=== PATIENT | female | born 1965 | race Caucasian/White ===

== ENCOUNTER 2018-01-27 08:19 | Day surgery (SDC) | payer OTHER ==
[~2018-01-27] VITALS: Ht 160 cm; Wt 138.6 kg
[~2018-01-27 08:19] MED LIST: ALBU3IS INH; ALBU90OI61 INH; ARIP10 PO; AZIT250 PO; BECL40OI INH; CLIN150 PO; CYCL10 PO; DILT30 PO; DIPATR; DOCU100 PO; ESCI10 PO; ESTR.625; ESTR2; EXTRA STRENGTH500 MG PO; Estradiol0.5 MG PO; FURO40 PO; LORA.5; LORA.5 PO; Mirapex0.25 MG PO; NAPR500 PO; NYSTRITC TOP; PARO20 PO; POTA10T PO; PRAM.125; PRAV20 PO; QUET100; RISP1 PO; RXCLIN PO; RXCYCL10 PO; TOPI25; TOPI25 PO; VENL75ER; Ventolin Soln3 ML INH; WARF7.5 PO; [UNRECOGNIZED DRUG - OTHER]; estradiol
[2018-01-27] MEDS ORDERED: LATUDA40 MG PO (09:17)
== END 2018-01-27 10:00 | disposition home or self-care (01) ==
LOC: ORSCSDS 08:19
DX: G56.02 Carpal tunnel syndrome, left upper limb (principal); Z53.9 Procedure and treatment not carried out, unspecified reason; I10 Essential (primary) hypertension; J45.909 Unspecified asthma, uncomplicated; J44.9 Chronic obstructive pulmonary disease, unspecified; F41.8 Other specified anxiety disorders; Z79.899 Other long term (current) drug therapy; E11.51 Type 2 diabetes mellitus with diabetic peripheral angiopathy without gangrene
CPT/HCPCS: 82947; J7120

== ENCOUNTER 2018-02-10 08:15 | Day surgery (SDC) | payer OTHER ==
[~2018-02-10] VITALS: Ht 152.4 cm; Wt 136.8 kg
[~2018-02-10 08:15] MED LIST changes: +LATUDA40 MG PO
== END 2018-02-10 10:59 | disposition home or self-care (01) ==
LOC: ORSCSDS 08:15
PROVIDERS: Orthopaedic Surgery
PROC: 01N50ZZ Release Median Nerve, Open Approach (ICD-10-PCS; principal; 2018-02-10 09:30)
DX: G56.02 Carpal tunnel syndrome, left upper limb (principal); E11.9 Type 2 diabetes mellitus without complications; I10 Essential (primary) hypertension; E03.9 Hypothyroidism, unspecified; E78.5 Hyperlipidemia, unspecified; Z87.891 Personal history of nicotine dependence; F41.8 Other specified anxiety disorders; Z79.899 Other long term (current) drug therapy
CPT/HCPCS: J2250

== ENCOUNTER → 2018-02-17 | Outpatient (CLI) | payer OTHER ==
[2018-02-17 14:57] LABS: Source, Urine Voided
[2018-02-17 15:07] LABS: Red Blood Cells, Urine 0-2 /hpf (0-2); White Blood Cells, Urine Rare /hpf (0-5)
[2018-02-17 15:08] LABS: Bacteria Not Seen /hpf; Squamous Epithelial Cells Rare /hpf (Few)
== END ==
LOC: LAB SHORT 14:56 → LAB EV 14:56
PROVIDERS: Physician Assistant
DX: R30.0 Dysuria (principal)
CPT/HCPCS: 81015; 87077; 87086; 87186

== ENCOUNTER → 2018-03-10 | Outpatient (CLI) | payer OTHER ==
[2018-03-10 13:55] LABS: Blood Urea Nitrogen 11 mg/dL (8-24); Creatinine, Blood 0.75 mg/dL (0.40-1.00); Glomerular Filtration Rate >60 (60-)
== END ==
LOC: LAB 11:19 → LAB SHORT 11:19
PROVIDERS: Hospitalist
DX: N39.0 Urinary tract infection, site not specified (principal); R06.02 Shortness of breath
CPT/HCPCS: 82565; 84520; 87086

== ENCOUNTER → 2018-05-13 | Outpatient (CLI) | payer OTHER ==
[2018-05-13 16:16] LABS: Appearance, Urine Clear (Clear); Bilirubin, Urine Neg (Neg); Blood, Urine Neg (Neg); Color, Urine Yellow (P-Yellow); Glucose Qualitative, Urine Neg (Neg); Ketones, Urine Neg (Neg); Leukocyte Esterase, Urine Neg (Neg); Nitrite, Urine Neg (Neg); Protein, Urine Neg (Neg); Urobilinogen, Urine NORM (Normal)
== END ==
LOC: LAB 12:35 → LAB SHORT 12:35
PROVIDERS: Hospitalist
DX: N39.0 Urinary tract infection, site not specified (principal)
CPT/HCPCS: 81003

== ENCOUNTER → 2018-12-07 | Outpatient (CLI) | payer OTHER ==
[~2018-12-07] MED LIST changes: +LEVO750 PO
== END | disposition home or self-care (01) ==
LOC: LAB SHORT 13:33 → LAB 13:33
DX: R30.0 Dysuria (principal)
CPT/HCPCS: 87086

== ENCOUNTER → 2019-02-28 | Outpatient (CLI) | payer OTHER | END | disposition home or self-care (01) | LOC: LAB 17:19 → LAB SHORT 17:19 | DX: R30.0 Dysuria (principal) | CPT/HCPCS: 87077; 87086; 87186 ==

== ENCOUNTER → 2019-04-10 | Outpatient (CLI) | payer OTHER ==
[2019-04-10 16:14] LABS: Alanine Aminotransfer (ALT/SGP 22 U/L (12-78); Albumin, Blood 3.3 g/dL (3.4-5.0); Albumin/Globulin Ratio 0.9 (0.8-1.8); Alk Phos 133 U/L (50-136); Anion Gap 6 mmol/L (6-16); Aspartate Aminotrans (AST/SGOT 42 U/L (12-37); Blood Urea Nitrogen 12 mg/dL (8-24); Bun/Creatinine Ratio 16.9 (12.0-20.0); CHOL/HDL RATIO 4.7; CO2, Blood 29 mmol/L (21-32); Calcium, Blood 8.9 mg/dL (8.5-10.1); Chloride, Blood 106 mmol/L (98-108); Cholesterol 174 mg/dL (50-200); Creatinine, Blood 0.71 mg/dL (0.40-1.00); Globulin, Blood 3.7 g/dL (2.2-4.0); Glomerular Filtration Rate >60 (60-); Glucose, Blood 117 mg/dL (70-99); HDL Cholesterol 37 mg/dL (>39); LDL/HDL RATIO 2.5; Low Density Lipoprotein Chol 94 mg/dL (0-110); Potassium, Blood 4.5 mmol/L (3.5-5.5); Sodium, Blood 141 mmol/L (136-145); Triglycerides 217 mg/dL (30-160); Very Low Density Lipoprot Chol 43 mg/dL (6-32)
[2019-04-10 16:39] LABS: Bilirubin, Total 0.7 mg/dL (0.1-1.0)
== END | disposition home or self-care (01) ==
LOC: LAB SHORT 15:53 → LAB 15:53
PROVIDERS: Hospitalist
DX: E11.51 Type 2 diabetes mellitus with diabetic peripheral angiopathy without gangrene (principal); E55.9 Vitamin D deficiency, unspecified
CPT/HCPCS: 80053; 80061; 82306; 83036

== ENCOUNTER → 2019-05-02 | Outpatient (CLI) | payer OTHER | END | disposition home or self-care (01) | LOC: LAB EV 11:31 → LAB SHORT 11:31 | DX: N39.0 Urinary tract infection, site not specified (principal) | CPT/HCPCS: 87077; 87086; 87186 ==

== ENCOUNTER → 2019-07-03 | Outpatient (CLI) | payer OTHER | END | disposition home or self-care (01) | LOC: LAB SHORT 19:17 → LAB 19:17 | DX: R35.0 Frequency of micturition (principal) | CPT/HCPCS: 87077; 87086; 87186 ==

== ENCOUNTER → 2019-07-11 | Outpatient (CLI) | payer OTHER | END | disposition home or self-care (01) | LOC: PLD 07:54 → LAB SHORT 07:54 | DX: L30.8 Other specified dermatitis (principal) | CPT/HCPCS: 88305; 88313 ==

== ENCOUNTER → 2019-10-06 | Outpatient (CLI) | payer OTHER | END | disposition home or self-care (01) | LOC: LAB SHORT 13:45 → LAB 13:45 | DX: N39.0 Urinary tract infection, site not specified (principal) | CPT/HCPCS: 87077; 87086; 87186 ==

== ENCOUNTER → 2019-11-30 | Outpatient (CLI) | payer OTHER | END | disposition home or self-care (01) | LOC: LAB SHORT 15:44 → LAB 15:44 | DX: N39.0 Urinary tract infection, site not specified (principal) | CPT/HCPCS: 87077; 87086; 87186 ==

== ENCOUNTER → 2019-12-14 | Outpatient (CLI) | payer OTHER | END | disposition home or self-care (01) | LOC: LAB SHORT 13:32 → LAB 13:32 | DX: N39.0 Urinary tract infection, site not specified (principal) | CPT/HCPCS: 87086 ==

== ENCOUNTER → 2020-06-20 | Outpatient (CLI) | payer OTHER | END | disposition home or self-care (01) | LOC: LAB SHORT 14:26 → PLD 14:26 | DX: L57.0 Actinic keratosis (principal) | CPT/HCPCS: 88305 ==

== ENCOUNTER → 2020-07-17 | Outpatient (CLI) | payer OTHER | END | disposition home or self-care (01) | LOC: LAB SHORT 19:22 → OLS 19:22 | DX: E11.51 Type 2 diabetes mellitus with diabetic peripheral angiopathy without gangrene (principal) | CPT/HCPCS: 82043 ==

== ENCOUNTER → 2020-08-27 | Outpatient (CLI) | payer OTHER ==
[~2020-08-27] MED LIST changes: +DOCUZEN 8.6-501 EACH PO; +IBUP800 PO; +IPRAT-ALBUT 0.5-3 ML NEB; +LATUDA60 M2 PO; +LORAZEPAM0.5 MG PO; +LOSARTAN POTASS25 M2 PO; +METFORMIN HCL500 M3 PO; +METOPROLOL SUCC25 MG PO; +Norco 5-325 Ta1 EACH PO; +PAXIL40 M1 PO; +PRAMIPEXOLE DIHY1 M1 PO; +PREGABALIN150 M1 PO; +PULMICORT0.5 MG/21 NEB
== END | disposition home or self-care (01) ==
LOC: LAB 14:52
DX: N30.00 Acute cystitis without hematuria (principal)
CPT/HCPCS: 87077; 87086; 87186

== ENCOUNTER → 2020-10-10 | Outpatient (CLI) | payer OTHER ==
[2020-10-10 19:54] LABS: Creatinine, Blood 0.79 mg/dL (0.40-1.00)
== END | disposition home or self-care (01) ==
LOC: LAB SHORT 14:30 → LAB 14:30
PROVIDERS: Hospitalist
DX: R10.10 Upper abdominal pain, unspecified (principal)
CPT/HCPCS: 82565; 84520

== ENCOUNTER 2020-11-18 09:40 | Emergency (ER) | payer OTHER ==
[~2020-11-18] VITALS: Ht 160 cm; Wt 130.6 kg
[~2020-11-18 09:40] MED LIST changes: -DOCUZEN 8.6-501 EACH PO; -IBUP800 PO; -IPRAT-ALBUT 0.5-3 ML NEB; -LATUDA60 M2 PO; -LORAZEPAM0.5 MG PO; -LOSARTAN POTASS25 M2 PO; -METFORMIN HCL500 M3 PO; -METOPROLOL SUCC25 MG PO; -Norco 5-325 Ta1 EACH PO; -PAXIL40 M1 PO; -PRAMIPEXOLE DIHY1 M1 PO; -PREGABALIN150 M1 PO; -PULMICORT0.5 MG/21 NEB
[2020-11-18 11:02] LABS: Source, Urine Voided
[2020-11-18 11:24] LABS: Bilirubin, Urine Neg (Neg); Blood, Urine Neg (Neg); Glucose Qualitative, Urine Neg (Neg); Ketones, Urine Neg (Neg); Leukocyte Esterase, Urine Neg (Neg); Nitrite, Urine Neg (Neg); Protein, Urine Neg (Neg); Specific Gravity, Urine 1.025 (1.003-1.022); Urobilinogen, Urine NORM (Normal)
[2020-11-18 11:33] LABS: BASOPHILS ABSOLUTE AUTO 0.08 K/mm3 (0.00-0.23); BASOPHILS PERCENT AUTO 1 % (0-2); EOSINOPHILS ABSOLUTE AUTO 0.18 K/mm3 (0.00-0.68); EOSINOPHILS PERCENT AUTO 2 % (0-6); Hematocrit 46.4 % (33.0-51.0); Hemoglobin 15.5 g/dL (11.5-16.0); IMMATURE GRAN ABSOLUTE AUTO 0.06 K/mm3 (0.00-0.10); IMMATURE GRAN PERCENT AUTO 1 % (0-1); LYMPHOCYTES ABSOLUTE AUTO 2.88 K/mm3 (0.84-5.20); LYMPHOCYTES PERCENT AUTO 27 % (21-46); MONOCYTES ABSOLUTE AUTO 0.94 K/mm3 (0.16-1.47); MONOCYTES PERCENT AUTO 9 % (4-13); Mean Corpuscular HGB Conc 33.4 g/dL (31.5-36.5); Mean Corpuscular Volume 96 fL (80-100); Mean Platelet Volume 10.2 fL (9.1-12.4); NEUTROPHILS PERCENT AUTO 61 % (41-73); Platelet Count 242 K/mm3 (150-400); RDW Coefficient Variation 13.2 % (11.7-14.2); RDW Standard Deviation 47.1 fL (35.1-46.3); Red Blood Cell Count 4.84 M/mm3 (3.80-5.20); White Blood Cell Count 10.64 K/mm3 (4.00-11.30)
[2020-11-18 11:40] LABS: Appearance, Urine Clear (Clear); Color, Urine Yellow (P-Yellow)
[2020-11-18 11:59] LABS: Alanine Aminotransfer (ALT/SGP 22 U/L (12-78); Albumin, Blood 2.9 g/dL (3.4-5.0); Albumin/Globulin Ratio 0.7 (0.8-1.8); Alk Phos 123 U/L (50-136); Anion Gap 8 mmol/L (6-16); Aspartate Aminotrans (AST/SGOT 29 U/L (12-37); Bilirubin, Total 0.3 mg/dL (0.1-1.0); Blood Urea Nitrogen 12 mg/dL (8-24); CO2, Blood 26 mmol/L (21-32); Calcium, Blood 9.3 mg/dL (8.5-10.1); Chloride, Blood 107 mmol/L (98-108); Creatinine, Blood 0.67 mg/dL (0.40-1.00); Globulin, Blood 4.1 g/dL (2.2-4.0); Glomerular Filtration Rate >60 (60-); Glucose, Blood 126 mg/dL (70-99); Potassium, Blood 4.4 mmol/L (3.5-5.5); Sodium, Blood 141 mmol/L (136-145)
[2020-11-18] MEDS ORDERED: Norco 5-325 Ta1 EACH PO (13:33)
[2020-11-18] MEDS ORDERED: IBUP800 PO (13:33)
== END 2020-11-18 14:58 | disposition home or self-care (01) ==
LOC: ER 09:40
PROVIDERS: Emergency Medicine
DX: M54.9 Dorsalgia, unspecified (principal); R10.9 Unspecified abdominal pain; Z79.899 Other long term (current) drug therapy; Z79.01 Long term (current) use of anticoagulants; Z88.2 Allergy status to sulfonamides; Z88.0 Allergy status to penicillin; Z91.09 Other allergy status, other than to drugs and biological substances; Z88.1 Allergy status to other antibiotic agents
CPT/HCPCS: 36415; 80053; 81003; 83690; 85025; 96374; 96375; 99283-25; J1885; J2270; J2405

== ENCOUNTER 2020-11-25 10:56 | Observation (INO) | payer OTHER ==
[~2020-11-25] VITALS: Ht 160 cm; Wt 132.9 kg
[~2020-11-25 10:56] MED LIST changes: +IBUP800 PO; +Norco 5-325 Ta1 EACH PO
[2020-11-25] MEDS ORDERED: PAXIL40 M1 PO (12:02)
[2020-11-25] MEDS ORDERED: LATUDA60 M2 PO (12:04)
[2020-11-25] MEDS ORDERED: PREGABALIN150 M1 PO (12:04)
[2020-11-25] MEDS ORDERED: METFORMIN HCL500 M3 PO (12:06)
[2020-11-25] MEDS ORDERED: LORAZEPAM0.5 MG PO (12:06)
[2020-11-25] MEDS ORDERED: PRAMIPEXOLE DIHY1 M1 PO (12:07)
[2020-11-25] MEDS ORDERED: PULMICORT0.5 MG/21 NEB (12:07)
[2020-11-25] MEDS ORDERED: IPRAT-ALBUT 0.5-3 ML NEB (12:09)
[2020-11-25] MEDS ORDERED: METOPROLOL SUCC25 MG PO (12:14)
[2020-11-25] MEDS ORDERED: LOSARTAN POTASS25 M2 PO (12:14)
[2020-11-25 12:16] LABS: BASOPHILS ABSOLUTE AUTO 0.08 K/mm3 (0.00-0.23); BASOPHILS PERCENT AUTO 1 % (0-2); EOSINOPHILS ABSOLUTE AUTO 0.22 K/mm3 (0.00-0.68); EOSINOPHILS PERCENT AUTO 3 % (0-6); Hematocrit 48.8 % (33.0-51.0); Hemoglobin 16.3 g/dL (11.5-16.0); IMMATURE GRAN ABSOLUTE AUTO 0.08 K/mm3 (0.00-0.10); IMMATURE GRAN PERCENT AUTO 1 % (0-1); LYMPHOCYTES ABSOLUTE AUTO 2.61 K/mm3 (0.84-5.20); LYMPHOCYTES PERCENT AUTO 30 % (21-46); MONOCYTES ABSOLUTE AUTO 0.72 K/mm3 (0.16-1.47); MONOCYTES PERCENT AUTO 8 % (4-13); Mean Corpuscular HGB Conc 33.4 g/dL (31.5-36.5); Mean Corpuscular Volume 96 fL (80-100); Mean Platelet Volume 10.4 fL (9.1-12.4); NEUTROPHILS ABSOLUTE AUTO 5.02 K/mm3 (1.96-9.15); NEUTROPHILS PERCENT AUTO 58 % (41-73); Platelet Count 301 K/mm3 (150-400); RDW Coefficient Variation 13.2 % (11.7-14.2); RDW Standard Deviation 47.1 fL (35.1-46.3); Red Blood Cell Count 5.09 M/mm3 (3.80-5.20); White Blood Cell Count 8.73 K/mm3 (4.00-11.30)
[2020-11-25 12:27] LABS: International Normalized Ratio 1.01; Prothrombin Time Results 10.8 Sec (9.7-11.5)
[2020-11-25 12:52] LABS: Alanine Aminotransfer (ALT/SGP 23 U/L (12-78); Albumin, Blood 3.5 g/dL (3.4-5.0); Albumin/Globulin Ratio 0.8 (0.8-1.8); Alk Phos 128 U/L (50-136); Anion Gap 4 mmol/L (6-16); Aspartate Aminotrans (AST/SGOT 30 U/L (12-37); Bilirubin, Total 0.5 mg/dL (0.1-1.0); Blood Urea Nitrogen 13 mg/dL (8-24); Bun/Creatinine Ratio 17.9 (12.0-20.0); CO2, Blood 29 mmol/L (21-32); Calcium, Blood 9.6 mg/dL (8.5-10.1); Chloride, Blood 106 mmol/L (98-108); Creatinine, Blood 0.73 mg/dL (0.40-1.00); Globulin, Blood 4.4 g/dL (2.2-4.0); Glomerular Filtration Rate >60 (60-); Glucose, Blood 140 mg/dL (70-99); Potassium, Blood 4.4 mmol/L (3.5-5.5); Sodium, Blood 139 mmol/L (136-145); Total Protein, Blood 7.9 g/dL (6.4-8.2)
[2020-11-25 13:07] LABS: Source, Urine Clean Catch
[2020-11-25 13:12] LABS: Appearance, Urine Hazy (Clear); Bilirubin, Urine Neg (Neg); Blood, Urine Neg (Neg); Color, Urine Yellow (P-Yellow); Glucose Qualitative, Urine Neg (Neg); Ketones, Urine Neg (Neg); Leukocyte Esterase, Urine Neg (Neg); Nitrite, Urine Neg (Neg); Protein, Urine Neg (Neg); Specific Gravity, Urine 1.015 (1.003-1.022); Urobilinogen, Urine NORM (Normal)
[2020-11-25 13:27] LABS: Red Blood Cells, Urine 0-2 /hpf (0-2); Squamous Epithelial Cells Mod /hpf (Few); White Blood Cells, Urine 0-2 /hpf (0-5)
[2020-11-25 13:27] LABS: Influenza A, PCR NEGATIVE (NEGATIVE); Influenza B, PCR NEGATIVE (NEGATIVE); Resp Syncytial Virus, PCR NEGATIVE (NEGATIVE); SARS-Cov-2 (COVID-19) PCR, MMC NEGATIVE (NEGATIVE)
[2020-11-25 13:28] LABS: Bacteria Rare /hpf; Yeast/Fungi Urine Mod /hpf
--- NOTE | 2020-11-26 03:52 | NUR ---
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 C/O PAIN IN RUQ, MEDICATED PER EMAR. COMPLIANT WITH CPAP. VSS, NO ACUTE CHANGES AT THIS TIME. NPO SINCE MIDNIGHT, PLAN FOR MARSHAL TODAY. BED IN LOWEST POSITION WITH CALL LIGHT IN REACH. WILL CONTINUE TO MONITOR AND REPORT TO ONCOMING RN.
[2020-11-26 04:10] LABS: Hematocrit 43.6 % (33.0-51.0); Hemoglobin 14.2 g/dL (11.5-16.0); Mean Corpuscular HGB 31.5 pg (26.0-34.0); Mean Corpuscular HGB Conc 32.6 g/dL (31.5-36.5); Mean Corpuscular Volume 97 fL (80-100); Mean Platelet Volume 10.1 fL (9.1-12.4); Platelet Count 279 K/mm3 (150-400); RDW Coefficient Variation 13.2 % (11.7-14.2); RDW Standard Deviation 46.7 fL (35.1-46.3); Red Blood Cell Count 4.51 M/mm3 (3.80-5.20); White Blood Cell Count 8.32 K/mm3 (4.00-11.30)
[2020-11-26 04:49] LABS: Alanine Aminotransfer (ALT/SGP 17 U/L (12-78); Albumin/Globulin Ratio 0.9 (0.8-1.8); Alk Phos 114 U/L (50-136); Anion Gap 3 mmol/L (6-16); Aspartate Aminotrans (AST/SGOT 23 U/L (12-37); Bilirubin, Total 0.5 mg/dL (0.1-1.0); Blood Urea Nitrogen 10 mg/dL (8-24); Bun/Creatinine Ratio 11.2 (12.0-20.0); CO2, Blood 33 mmol/L (21-32); Calcium, Blood 9.1 mg/dL (8.5-10.1); Chloride, Blood 105 mmol/L (98-108); Creatinine, Blood 0.89 mg/dL (0.40-1.00); Globulin, Blood 3.5 g/dL (2.2-4.0); Glomerular Filtration Rate >60 (60-); Glucose, Blood 113 mg/dL (70-99); Potassium, Blood 4.3 mmol/L (3.5-5.5); Sodium, Blood 141 mmol/L (136-145); Total Protein, Blood 6.5 g/dL (6.4-8.2)
--- NOTE | 2020-11-26 10:35 | NUR ---
PATIENT TO THE OR FOR LAP MARSHAL AT 1030. SELF TRANSFERED TO [facility]. L VIA MT. ALERT AND ORIENTED. STABLE AT TIME OF TRANSFER. WILL AWAIT PATIENTS RETURN.
--- NOTE | 2020-11-26 13:01 | NUR ---
PATIENT RETURNED FROM THE PACU AT 1215. SHE SELF TRANSFERED TO HER BED, THEN BATHROOM AND BACK WITH A WALKER. 1 PERSON STAND BY ASSIST. BIOX IS ABOUT 90% ON 3L. MEDICATED WITH 25MCG FENTAYL AND PLACED ON CPAP WITH 3L BLEED TO REST. BED LOW AND LOCKED, CALL LIGHT WITHIN REACH. WILL CONT TO [facility].
--- NOTE | 2020-11-26 15:14 | NUR ---
PATIENT STATES SHE NO LONGER WISHES TO BE A DNR. SHE REQUESTS HER PURPLE WRIST BAND TO BE REMOVED AND MADE A FULL CODE. REVIEWED WITH . ORDERS UPDATED TO REFLECT PATIENTS WISHES. WILL CONT TO MONITOR.
--- NOTE | 2020-11-26 17:49 | NUR ---
SHIFT SUMMARY NO ACUTE CHANGES THIS SHIFT. PATIENT ALERT, ORIENTED, ABLE TO MAKE HER NEEDS KNOWN. SHE IS INDEPENDENT IN HER ROOM. SHE HAS MAINTAINED HER SPO2 LEVELS ON 3L, 2L BASELINE AT HOME. CPAP WHEN SHE RESTS/SLEEPS. PRN SIMETHECON FOR GAS GIVEN X1, 25MCG FENANYL IV X1 FOR PAIN POST OP. PATIENT TOLERATING ADA DIET. BED LOW AND LOCKED, CALL LIGHT WITHIN REACH. WILL CONT TO MONITOR AND PROVIDE REPORT TO NOC SHIFT RN.
--- NOTE | 2020-11-27 05:54 | NUR ---
SHIFT SUMMARY POD1 LAP JENIFFER, A/O X4, VSS, TOLERATING PO, VOIDING WELL, INDEPENDENT IN ROOM AND BATHROOM, NO BM REPORTED THIS SHIFT, PAIN WELL CONTROLLED W/ ORAL MEDS (PER EMAR), NO ACUTE EVENTS THIS SHIFT. CALL LIGHT IN REACH, WILL CONTINUE TO MONITOR AND REPORT TO ONCOMING DAY RN.
[2020-11-27] MEDS ORDERED: Norco 5-325 Ta1 EACH PO (13:31)
[2020-11-27] MEDS ORDERED: DOCUZEN 8.6-501 EACH PO (13:33)
--- NOTE | 2020-11-27 16:38 | NUR ---
DISCHARGE HOME PATIENT DISCHAGE HOME. A FRIEND PICKED HER UP. MEDICATIONS FAXED TO [facility] IN [place] PER PATIENTS REQUEST. DISCHARGE TEACHING COMPLETE. PATIENT VERBALIZE DUNDERSTANDING AND STATES SHE FEELS READY FOR DISCHARGE. PATIENT ESCORTED OUT BY SURG FLOOR STAFF. PATIENT STABLE AT TIME OF DISCHARGE
== END 2020-11-27 14:13 | disposition home or self-care (01) ==
LOC: ER 10:56 → ERHOLD 10:57 → SURS 10:57
PROVIDERS: Physician Assistant; Surgery; ADMIT Internal Medicine
PROC: 0FT44ZZ Resection of Gallbladder, Percutaneous Endoscopic Approach (ICD-10-PCS; principal; 2020-11-26 13:30)
DX: K80.12 Calculus of gallbladder with acute and chronic cholecystitis without obstruction (principal); J44.9 Chronic obstructive pulmonary disease, unspecified; E78.5 Hyperlipidemia, unspecified; I10 Essential (primary) hypertension; G47.33 Obstructive sleep apnea (adult) (pediatric); E11.51 Type 2 diabetes mellitus with diabetic peripheral angiopathy without gangrene; E66.01 Morbid (severe) obesity due to excess calories; E03.9 Hypothyroidism, unspecified; F43.10 Post-traumatic stress disorder, unspecified; F31.9 Bipolar disorder, unspecified; Z87.891 Personal history of nicotine dependence; Z86.711 Personal history of pulmonary embolism; Z88.1 Allergy status to other antibiotic agents; Z88.0 Allergy status to penicillin; Z88.2 Allergy status to sulfonamides; Z79.84 Long term (current) use of oral hypoglycemic drugs; Z66 Do not resuscitate; Z20.822 Contact with and (suspected) exposure to COVID-19; Z68.43 Body mass index [BMI] 50.0-59.9, adult
CPT/HCPCS: 0241U; 36415; 74300; 76705; 80053; 81001; 82947; 83690; 85025; 85027; 85610; 88304; 93005; 93010; 94640; 94660; 94762; 96372; 96374; 96375; 96376; 99284-25; A9270; C1729; G0378; J0330; J0690; J1100; J1170; J1650; J2370; J2405; J2704; J3010; J7030; J7120

== ENCOUNTER → 2021-01-30 | Outpatient (CLI) | payer OTHER ==
[~2021-01-30] MED LIST changes: +DOCUZEN 8.6-501 EACH PO; +IPRAT-ALBUT 0.5-3 ML NEB; +LATUDA60 M2 PO; +LORAZEPAM0.5 MG PO; +LOSARTAN POTASS25 M2 PO; +METFORMIN HCL500 M3 PO; +METOPROLOL SUCC25 MG PO; +PAXIL40 M1 PO; +PRAMIPEXOLE DIHY1 M1 PO; +PREGABALIN150 M1 PO; +PULMICORT0.5 MG/21 NEB
== END | disposition home or self-care (01) ==
LOC: LAB 13:59 → LAB SHORT 13:59
DX: L57.0 Actinic keratosis (principal)
CPT/HCPCS: 88305

== ENCOUNTER → 2021-02-11 | Outpatient (CLI) | payer OTHER | LOC: LAB SHORT 13:40 → LAB 13:40 | DX: E11.51 Type 2 diabetes mellitus with diabetic peripheral angiopathy without gangrene (principal) | CPT/HCPCS: 82043 ==

== ENCOUNTER → 2021-04-06 | Outpatient (CLI) | payer OTHER ==
[2021-04-07 14:36] LABS: Adenovirus F 40/41 Not Detected (NOT DETECT); Astrovirus Not Detected (NOT DETECT); Campylobacter Sp Not Detected (NOT DETECT); Cryptosporidium Not Detected (NOT DETECT); Cyclospora Cayetanensis Not Detected (NOT DETECT); E. Coli O157 Not Detected (NOT DETECT); Entamoeba Histolytica Not Detected (NOT DETECT); Enteroaggregative E. coli-EAEC Not Detected (NOT DETECT); Enteropathogenic E. coli-EPEC Not Detected (NOT DETECT); Enterotoxigenic E. coli-ETEC Not Detected (NOT DETECT); Giardia Lamblia Not Detected (NOT DETECT); Norovirus GI/GII Not Detected (NOT DETECT); Plesiomonas Shigelloides Not Detected (NOT DETECT); Rotavirus A Not Detected (NOT DETECT); Salmonella Sp Not Detected (NOT DETECT); Sapovirus Not Detected (NOT DETECT); Shiga Toxin-prod E. coli-STEC Not Detected (NOT DETECT); Shigella/Enteroin E. coli-EIEC Not Detected (NOT DETECT); Vibrio Cholerae Not Detected (NOT DETECT); Vibrio Sp Not Detected (NOT DETECT); Yersinia Enterocolitica Not Detected (NOT DETECT)
== END | disposition home or self-care (01) ==
LOC: LAB SHORT 11:09
PROVIDERS: Hospitalist
DX: R19.7 Diarrhea, unspecified (principal)
CPT/HCPCS: 0097U

== ENCOUNTER → 2021-05-20 | Outpatient (CLI) | payer OTHER | END | disposition home or self-care (01) | LOC: LAB 13:37 → LAB SHORT 13:37 | DX: R53.83 Other fatigue (principal) | CPT/HCPCS: 87077; 87086; 87186 ==

== ENCOUNTER → 2021-07-16 | Outpatient (CLI) | payer OTHER | LOC: LAB 07:36 → LAB SHORT 07:36 | DX: D48.5 Neoplasm of uncertain behavior of skin (principal); L28.0 Lichen simplex chronicus; Z88.0 Allergy status to penicillin; Z88.1 Allergy status to other antibiotic agents; Z88.2 Allergy status to sulfonamides; Z91.048 Other nonmedicinal substance allergy status | CPT/HCPCS: 88305; 88312; 88313 ==

== ENCOUNTER → 2021-11-01 | Outpatient (CLI) | payer OTHER ==
[2021-11-05 08:10] LABS: HSV-1 DNA Negative (Negative); HSV-2 DNA Negative (Negative)
== END | disposition home or self-care (01) ==
LOC: LAB SHORT 11:46
PROVIDERS: Physician Assistant
DX: L08.9 Local infection of the skin and subcutaneous tissue, unspecified (principal)
CPT/HCPCS: 87070; 87077; 87147; 87186; 87205; 87529

== ENCOUNTER → 2021-11-19 | Outpatient (CLI) | payer OTHER | END | disposition home or self-care (01) | LOC: LAB SHORT 11:39 → LAB 11:39 | DX: N30.00 Acute cystitis without hematuria (principal) | CPT/HCPCS: 87077; 87086; 87186 ==

== ENCOUNTER → 2021-12-24 | Outpatient (CLI) | payer OTHER ==
[2021-12-24 15:10] LABS: BASOPHILS ABSOLUTE AUTO 0.07 K/mm3 (0.00-0.23); BASOPHILS PERCENT AUTO 1 % (0-2); EOSINOPHILS ABSOLUTE AUTO 0.13 K/mm3 (0.00-0.68); EOSINOPHILS PERCENT AUTO 2 % (0-6); Hematocrit 46.9 % (33.0-51.0); Hemoglobin 15.2 g/dL (11.5-16.0); IMMATURE GRAN ABSOLUTE AUTO 0.07 K/mm3 (0.00-0.10); IMMATURE GRAN PERCENT AUTO 1 % (0-1); LYMPHOCYTES ABSOLUTE AUTO 2.69 K/mm3 (0.84-5.20); LYMPHOCYTES PERCENT AUTO 31 % (21-46); MONOCYTES ABSOLUTE AUTO 0.64 K/mm3 (0.16-1.47); MONOCYTES PERCENT AUTO 7 % (4-13); Mean Corpuscular HGB 32.5 pg (26.0-34.0); Mean Corpuscular HGB Conc 32.4 g/dL (31.5-36.5); Mean Corpuscular Volume 100 fL (80-100); Mean Platelet Volume 10.8 fL (9.1-12.4); NEUTROPHILS ABSOLUTE AUTO 5.08 K/mm3 (1.96-9.15); NEUTROPHILS PERCENT AUTO 59 % (41-73); Platelet Count 294 K/mm3 (150-400); RDW Coefficient Variation 14.5 % (11.7-14.2); RDW Standard Deviation 53.2 fL (35.1-46.3); Red Blood Cell Count 4.67 M/mm3 (3.80-5.20); White Blood Cell Count 8.68 K/mm3 (4.00-11.30)
[2021-12-24 16:05] LABS: Alanine Aminotransfer (ALT/SGP 24 U/L (12-78); Albumin, Blood 3.4 g/dL (3.4-5.0); Albumin/Globulin Ratio 0.9 (0.8-1.8); Alk Phos 144 U/L (50-136); Anion Gap 8 mmol/L (6-16); Aspartate Aminotrans (AST/SGOT 36 U/L (12-37); Bilirubin, Total 0.4 mg/dL (0.1-1.0); Blood Urea Nitrogen 16 mg/dL (8-24); Bun/Creatinine Ratio 19.6 (12.0-20.0); CHOL/HDL RATIO 6.1; CO2, Blood 27 mmol/L (21-32); Calcium, Blood 9.6 mg/dL (8.5-10.1); Chloride, Blood 105 mmol/L (98-108); Cholesterol 221 mg/dL (50-200); Creatinine, Blood 0.82 mg/dL (0.40-1.00); Globulin, Blood 3.7 g/dL (2.2-4.0); Glomerular Filtration Rate >60 (60-); Glucose, Blood 159 mg/dL (70-99); HDL Cholesterol 36 mg/dL (>39); LDL/HDL RATIO 3.9; Low Density Lipoprotein Chol 140 mg/dL (0-110); Potassium, Blood 4.7 mmol/L (3.5-5.5); Sodium, Blood 140 mmol/L (136-145); Total Protein, Blood 7.1 g/dL (6.4-8.2); Triglycerides 227 mg/dL (30-160); Very Low Density Lipoprot Chol 45 mg/dL (6-32)
== END ==
LOC: LAB SHORT 13:50
PROVIDERS: Hospitalist
DX: E11.51 Type 2 diabetes mellitus with diabetic peripheral angiopathy without gangrene (principal); I10 Essential (primary) hypertension; E55.9 Vitamin D deficiency, unspecified; E78.5 Hyperlipidemia, unspecified
CPT/HCPCS: 80053; 80061; 82306; 83036; 85025

== ENCOUNTER → 2021-12-25 | Outpatient (CLI) | payer OTHER | END | disposition home or self-care (01) | LOC: LAB SHORT 13:05 | DX: E11.51 Type 2 diabetes mellitus with diabetic peripheral angiopathy without gangrene (principal) | CPT/HCPCS: 82043 ==

== ENCOUNTER → 2022-01-26 | Outpatient (CLI) | payer OTHER ==
[2022-01-26 13:33] LABS: BASOPHILS ABSOLUTE AUTO 0.06 K/mm3 (0.00-0.23); BASOPHILS PERCENT AUTO 1 % (0-2); EOSINOPHILS ABSOLUTE AUTO 0.14 K/mm3 (0.00-0.68); EOSINOPHILS PERCENT AUTO 2 % (0-6); Hematocrit 44.8 % (33.0-51.0); Hemoglobin 14.9 g/dL (11.5-16.0); IMMATURE GRAN ABSOLUTE AUTO 0.08 K/mm3 (0.00-0.10); IMMATURE GRAN PERCENT AUTO 1 % (0-1); LYMPHOCYTES PERCENT AUTO 32 % (21-46); MONOCYTES ABSOLUTE AUTO 0.57 K/mm3 (0.16-1.47); MONOCYTES PERCENT AUTO 7 % (4-13); Mean Corpuscular HGB 32.9 pg (26.0-34.0); Mean Corpuscular HGB Conc 33.3 g/dL (31.5-36.5); Mean Corpuscular Volume 99 fL (80-100); NEUTROPHILS ABSOLUTE AUTO 4.49 K/mm3 (1.96-9.15); NEUTROPHILS PERCENT AUTO 57 % (41-73); Platelet Count 265 K/mm3 (150-400); RDW Coefficient Variation 13.7 % (11.7-14.2); Red Blood Cell Count 4.53 M/mm3 (3.80-5.20); White Blood Cell Count 7.84 K/mm3 (4.00-11.30)
== END | disposition home or self-care (01) ==
LOC: LAB 13:28 → LAB SHORT 13:28
PROVIDERS: Family Medicine
DX: K92.1 Melena (principal)
CPT/HCPCS: 85025

== ENCOUNTER → 2022-04-01 | Outpatient (CLI) | payer OTHER | END | disposition home or self-care (01) | LOC: LAB SHORT 16:01 | DX: L40.0 Psoriasis vulgaris (principal); A49.9 Bacterial infection, unspecified | CPT/HCPCS: 87070; 87077; 87147; 87186; 87205 ==

== ENCOUNTER 2022-12-23 13:26 | Emergency (ER) | payer OTHER ==
[~2022-12-23] VITALS: Ht 160 cm; Wt 131.1 kg
== END 2022-12-23 19:15 | disposition home or self-care (01) ==
LOC: ER 13:26
DX: G43.909 Migraine, unspecified, not intractable, without status migrainosus (principal); Z88.0 Allergy status to penicillin; Z88.2 Allergy status to sulfonamides; Z88.1 Allergy status to other antibiotic agents; Z91.048 Other nonmedicinal substance allergy status; Z79.899 Other long term (current) drug therapy; Z79.84 Long term (current) use of oral hypoglycemic drugs; Z87.891 Personal history of nicotine dependence
CPT/HCPCS: 70450; J0780; J1200; J7030

== ENCOUNTER → 2023-06-01 | Outpatient (CLI) | payer OTHER ==
[2023-06-04 01:11] LABS: CHLAMYDIA TRACHOMATIS, NAA Negative (Negative)
== END | disposition home or self-care (01) ==
LOC: LAB SHORT 16:50 → LAB 16:50
PROVIDERS: Hospitalist
DX: Z11.3 Encounter for screening for infections with a predominantly sexual mode of transmission (principal); R30.0 Dysuria
CPT/HCPCS: 87077; 87086; 87186; 87491; 87591

== ENCOUNTER → 2023-07-08 | Outpatient (CLI) | payer OTHER | LOC: LAB SHORT 13:33 → LAB 13:33 | DX: J34.89 Other specified disorders of nose and nasal sinuses (principal) | CPT/HCPCS: 87147 ==

== ENCOUNTER 2023-08-14 02:32 | Emergency (ER) | payer OTHER ==
[~2023-08-14] VITALS: Ht 160 cm; Wt 123.4 kg
[2023-08-14 03:45] VITALS: BP 142/68
[2023-08-14] MEDS ORDERED: CYCL10 PO (03:53)
== END 2023-08-14 04:10 | disposition home or self-care (01) ==
LOC: ER 02:32
DX: M54.42 Lumbago with sciatica, left side (principal); G89.29 Other chronic pain; Z88.0 Allergy status to penicillin; Z88.1 Allergy status to other antibiotic agents; Z88.2 Allergy status to sulfonamides; Z91.048 Other nonmedicinal substance allergy status; Z79.51 Long term (current) use of inhaled steroids; Z79.84 Long term (current) use of oral hypoglycemic drugs; Z79.899 Other long term (current) drug therapy; Z87.891 Personal history of nicotine dependence
CPT/HCPCS: 96374; 99283-25; A9270; J1885

== ENCOUNTER 2023-09-27 11:28 | Emergency (ER) | payer OTHER ==
[~2023-09-27] VITALS: Ht 160 cm; Wt 120.2 kg
[2023-09-27 11:53] VITALS: BP 154/79
== END 2023-09-27 11:58 | disposition home or self-care (01) ==
LOC: ER 11:28
DX: M54.12 Radiculopathy, cervical region (principal); F17.200 Nicotine dependence, unspecified, uncomplicated
CPT/HCPCS: 99283

== ENCOUNTER → 2023-11-04 | Outpatient (CLI) | payer OTHER ==
[2023-11-04 19:23] LABS: BASOPHILS ABSOLUTE AUTO 0.06 K/mm3 (0.00-0.23); BASOPHILS PERCENT AUTO 1 % (0-2); EOSINOPHILS ABSOLUTE AUTO 0.32 K/mm3 (0.00-0.68); EOSINOPHILS PERCENT AUTO 4 % (0-6); Hematocrit 42.5 % (33.0-51.0); IMMATURE GRAN ABSOLUTE AUTO 0.12 K/mm3 (0.00-0.10); IMMATURE GRAN PERCENT AUTO 1 % (0-1); LYMPHOCYTES ABSOLUTE AUTO 3.01 K/mm3 (0.84-5.20); LYMPHOCYTES PERCENT AUTO 33 % (21-46); MONOCYTES ABSOLUTE AUTO 0.72 K/mm3 (0.16-1.47); MONOCYTES PERCENT AUTO 8 % (4-13); Mean Corpuscular HGB 32.9 pg (26.0-34.0); Mean Corpuscular HGB Conc 32.9 g/dL (31.5-36.5); Mean Corpuscular Volume 100 fL (80-100); Mean Platelet Volume 10.1 fL (9.1-12.4); NEUTROPHILS ABSOLUTE AUTO 5.02 K/mm3 (1.96-9.15); NEUTROPHILS PERCENT AUTO 54 % (41-73); Platelet Count 322 K/mm3 (150-400); RDW Coefficient Variation 13.4 % (11.7-14.2); RDW Standard Deviation 49.2 fL (35.1-46.3); Red Blood Cell Count 4.25 M/mm3 (3.80-5.20); White Blood Cell Count 9.25 K/mm3 (4.00-11.30)
[2023-11-04 19:45] LABS: Cholesterol 140 mg/dL (50-200); HDL Cholesterol 35 mg/dL (>39); LDL/HDL RATIO 1.9; Low Density Lipoprotein Chol 67 mg/dL (0-110); Triglycerides 192 mg/dL (30-160); Very Low Density Lipoprot Chol 38 mg/dL (6-32)
[2023-11-07 03:42] LABS: A/G RATIO 1.4 (1.2-2.2); ALKALINE PHOSPHATASE, S 142 IU/L (44-121); ALT (SGPT) 10 IU/L (0-32); AST (SGOT) 20 IU/L (0-40); BILIRUBIN, TOTAL <0.2 mg/dL (0.0-1.2); BUN 14 mg/dL (6-24); BUN/CREATININE RATIO 18 (9-23); CALCIUM, SERUM 9.2 mg/dL (8.7-10.2); CARBON DIOXIDE, TOTAL 19 mmol/L (20-29); CHLORIDE, SERUM 107 mmol/L (96-106); CREATININE, SERUM 0.77 mg/dL (0.57-1.00); GLOBULIN, TOTAL 2.8 g/dL (1.5-4.5); GLUCOSE, SERUM 113 mg/dL (70-99); POTASSIUM, SERUM 4.4 mmol/L (3.5-5.2); PROTEIN, TOTAL, SERUM 6.6 g/dL (6.0-8.5); SODIUM, SERUM 141 mmol/L (134-144)
[2023-11-07 11:48] LABS: HEPATITIS C AB CIA INTERP Negative (Negative); HEPATITIS C ANTIBODY CIA INDEX 0.18 IV
[2023-11-07 12:23] LABS: HIV 1,2 COMBO ANTIGEN/ANTIBODY Negative (Negative)
== END ==
LOC: LAB 18:41 → LAB SHORT 18:41
PROVIDERS: Nurse Practitioner Family
DX: Z11.59 Encounter for screening for other viral diseases (principal); E11.8 Type 2 diabetes mellitus with unspecified complications; E55.9 Vitamin D deficiency, unspecified; E78.5 Hyperlipidemia, unspecified; F31.81 Bipolar II disorder; I10 Essential (primary) hypertension
CPT/HCPCS: 80053; 80061; 82306; 83036; 84443; 85025; 86803; 87389

== ENCOUNTER → 2024-01-21 | Outpatient (CLI) | payer OTHER ==
[2024-01-21 18:31] LABS: BASOPHILS ABSOLUTE AUTO 0.13 K/mm3 (0.00-0.23); BASOPHILS PERCENT AUTO 1 % (0-2); EOSINOPHILS ABSOLUTE AUTO 0.38 K/mm3 (0.00-0.68); EOSINOPHILS PERCENT AUTO 4 % (0-6); Hematocrit 40.6 % (33.0-51.0); Hemoglobin 13.7 g/dL (11.5-16.0); IMMATURE GRAN ABSOLUTE AUTO 0.36 K/mm3 (0.00-0.10); IMMATURE GRAN PERCENT AUTO 4 % (0-1); LYMPHOCYTES ABSOLUTE AUTO 3.15 K/mm3 (0.84-5.20); LYMPHOCYTES PERCENT AUTO 31 % (21-46); MONOCYTES ABSOLUTE AUTO 0.73 K/mm3 (0.16-1.47); MONOCYTES PERCENT AUTO 7 % (4-13); Mean Corpuscular HGB 32.9 pg (26.0-34.0); Mean Corpuscular HGB Conc 33.7 g/dL (31.5-36.5); Mean Corpuscular Volume 98 fL (80-100); Mean Platelet Volume 9.5 fL (9.1-12.4); NEUTROPHILS ABSOLUTE AUTO 5.51 K/mm3 (1.96-9.15); NEUTROPHILS PERCENT AUTO 54 % (41-73); Platelet Count 319 K/mm3 (150-400); Red Blood Cell Count 4.16 M/mm3 (3.80-5.20); White Blood Cell Count 10.26 K/mm3 (4.00-11.30)
[2024-01-21 18:58] LABS: Albumin, Blood 3.1 g/dL (3.4-5.0); Albumin/Globulin Ratio 0.8 (0.8-1.8); Bilirubin, Total 0.2 mg/dL (0.1-1.0); Bun/Creatinine Ratio 20.5 (12.0-20.0); Calcium, Blood 8.9 mg/dL (8.5-10.1); Creatinine, Blood 0.78 mg/dL (0.40-1.00); Globulin, Blood 4.1 g/dL (2.2-4.0); Potassium, Blood 4.1 mmol/L (3.5-5.5); Total Protein, Blood 7.2 g/dL (6.4-8.2)
== END | disposition home or self-care (01) ==
LOC: LAB 18:26 → LAB SHORT 18:26
PROVIDERS: Emergency Medicine
DX: J44.9 Chronic obstructive pulmonary disease, unspecified (principal)
CPT/HCPCS: 80053; 83880; 84484; 85025; 85379

== ENCOUNTER → 2024-05-09 | Outpatient (CLI) | payer OTHER ==
[~2024-05-09] MED LIST changes: +ACET500 PO; +CEPH500 PO; +CODACE30 PO; +Clindamycin HC150 MG PO; +Diflucan100 MG PO; +LURASIDONE HCL60 MG PO; +METF500 PO; +NICODERM CQ1 EA11 TOP; +VISBIOME 112.51 EACH PO
== END | disposition home or self-care (01) ==
LOC: LAB 18:50 → LAB SHORT 18:50
DX: R39.9 Unspecified symptoms and signs involving the genitourinary system (principal)
CPT/HCPCS: 87077; 87086; 87186

== ENCOUNTER → 2024-06-16 | Outpatient (CLI) | payer OTHER | LOC: LAB SHORT 17:04 → LAB 17:04 | DX: N30.01 Acute cystitis with hematuria (principal) | CPT/HCPCS: 87077; 87086; 87186 ==

== ENCOUNTER 2024-08-03 16:19 | Inpatient (IN) | payer OTHER ==
[~2024-08-03] VITALS: Ht 160 cm; Wt 122.6 kg
[2024-08-03 16:57] LABS: BASOPHILS ABSOLUTE AUTO 0.08 K/mm3 (0.00-0.23); BASOPHILS PERCENT AUTO 1 % (0-2); EOSINOPHILS ABSOLUTE AUTO 0.34 K/mm3 (0.00-0.68); EOSINOPHILS PERCENT AUTO 4 % (0-6); Hematocrit 44.3 % (33.0-51.0); Hemoglobin 14.8 g/dL (11.5-16.0); IMMATURE GRAN ABSOLUTE AUTO 0.08 K/mm3 (0.00-0.10); IMMATURE GRAN PERCENT AUTO 1 % (0-1); LYMPHOCYTES ABSOLUTE AUTO 2.52 K/mm3 (0.84-5.20); LYMPHOCYTES PERCENT AUTO 26 % (21-46); MONOCYTES ABSOLUTE AUTO 0.63 K/mm3 (0.16-1.47); MONOCYTES PERCENT AUTO 7 % (4-13); Mean Corpuscular HGB 32.7 pg (26.0-34.0); Mean Corpuscular HGB Conc 33.4 g/dL (31.5-36.5); Mean Corpuscular Volume 98 fL (80-100); Mean Platelet Volume 9.8 fL (9.1-12.4); NEUTROPHILS ABSOLUTE AUTO 6.01 K/mm3 (1.96-9.15); NEUTROPHILS PERCENT AUTO 62 % (41-73); Platelet Count 276 K/mm3 (150-400); RDW Coefficient Variation 14.1 % (11.7-14.2); RDW Standard Deviation 50.4 fL (35.1-46.3); Red Blood Cell Count 4.53 M/mm3 (3.80-5.20); White Blood Cell Count 9.66 K/mm3 (4.00-11.30)
[2024-08-03 17:10] LABS: Albumin, Blood 3.1 g/dL (3.4-5.0); Albumin/Globulin Ratio 0.8 (0.8-1.8); Bilirubin, Total 0.4 mg/dL (0.1-1.0); Bun/Creatinine Ratio 12.9 (12.0-20.0); Calcium, Blood 9.2 mg/dL (8.5-10.1); Creatinine, Blood 0.78 mg/dL (0.40-1.00); Potassium, Blood 3.8 mmol/L (3.5-5.5); Total Protein, Blood 7.1 g/dL (6.4-8.2)
[2024-08-03] MEDS ORDERED: Acetaminophen 500 MG Tab PO ONE ×2 (17:30→19:55)
[2024-08-03] MEDS ORDERED: MethylPREDNISolone Sod Succ 125 MG Vial IV ONE (17:30)
[2024-08-03] MEDS ORDERED: Ipratropium Bromide INH 0.02% 0.5 mg/2.5ML Vial INH SCH ×2 (17:30→19:55)
[2024-08-03] MEDS ORDERED: Azithromycin 500 MG in NS 250 ML IV ONE (17:30)
[2024-08-03] MEDS ORDERED: Albuterol 2.5 MG/3 ML VIAL INH SCH ×2 (17:30→19:55)
[2024-08-03 17:55] LABS: Influenza A, PCR NEGATIVE (NEGATIVE); Influenza B, PCR NEGATIVE (NEGATIVE); Resp Syncytial Virus, PCR NEGATIVE (NEGATIVE); SARS-Cov-2 (COVID-19) PCR, MMC NEGATIVE (NEGATIVE)
[2024-08-03] MEDS ORDERED: Ibuprofen 600 MG Tab PO ONE (19:55)
[2024-08-03] MEDS ORDERED: Ondansetron HCl 2 MG / ML 2ML Vial IV PRN (22:40)
[2024-08-03] MEDS ORDERED: FLU VACC TS2024-25(6MOS UP)/PF 45 MCG/0.5 ML SYRINGE IM ONE (22:40)
[2024-08-03] MEDS ORDERED: Ipratropium/Albuterol SulF 2.5-0.5MG/3 ML Amp INH PRN (22:40)
[2024-08-03] MEDS ORDERED: LevoFLOXacin 750 MG/D5W 150ML 150 ML IV SCH (22:41)
[2024-08-03] MEDS ORDERED: Enoxaparin 40 MG/0.4 ML SYR SC SCH (23:00)
[2024-08-04] VITALS (13 sets, daily range): BP systolic 146–183; BP diastolic 60–109
[2024-08-04] MEDS ORDERED: MethylPREDNISolone Sod Succ 125 MG Vial IV SCH
--- NOTE | 2024-08-04 02:00 | NUR ---
ADMISSION REPORT RECEIVED FROM ER NURSE. PATIENT ARRIVES TO PCU, ABLE TO STAND AND PIVOT TO PCU BED STANDBY ASSIST. PATIENT IS ON 6L OXYGEN MASK, SPO2 MID 90s. PATIENT TACHYPNEIC ON ARRIVAL. 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 BP SLIGHTLY HYPERTENSIVE ON ARRIVAL. PATIENT REQUESTING SOME OF HER HOME MEDICATIONS. ORIENTED TO ROOM AND CALL LIGHT SYSTEM. BED IN LOW POSITION, HAS CALL LIGHT. DENIES FURTHER NEEDS AT THIS TIME.
[2024-08-04] MEDS ORDERED: TOPI100 PO (02:09)
[2024-08-04] MEDS ORDERED: FLU VACC TS2024-25(6MOS UP)/PF 45 MCG/0.5 ML SYRINGE IM ONE (02:30)
[2024-08-04 02:40] LABS: Hematocrit 43.5 % (33.0-51.0); Hemoglobin 14.8 g/dL (11.5-16.0); Mean Corpuscular HGB 32.5 pg (26.0-34.0); Mean Corpuscular Volume 95 fL (80-100); Mean Platelet Volume 9.6 fL (9.1-12.4); Platelet Count 275 K/mm3 (150-400); RDW Coefficient Variation 13.9 % (11.7-14.2); RDW Standard Deviation 48.8 fL (35.1-46.3); Red Blood Cell Count 4.56 M/mm3 (3.80-5.20); White Blood Cell Count 9.03 K/mm3 (4.00-11.30)
[2024-08-04] MEDS ORDERED: Ipratropium/Albuterol SulF 2.5-0.5MG/3 ML Amp INH SCH (02:40)
[2024-08-04] MEDS ORDERED: Albuterol 2.5 MG/3 ML VIAL INH PRN (02:40)
[2024-08-04] MEDS ORDERED: Acetaminophen 500 MG Tab PO PRN (02:50)
[2024-08-04] MEDS ORDERED: LORazepam 0.5 MG Tab PO PRN (02:55)
[2024-08-04] MEDS ORDERED: Cyclobenzaprine HCl 10 MG Tab PO PRN (02:55)
[2024-08-04 03:05] LABS: Albumin, Blood 3.1 g/dL (3.4-5.0); Albumin/Globulin Ratio 0.7 (0.8-1.8); Bilirubin, Total 0.3 mg/dL (0.1-1.0); Bun/Creatinine Ratio 17.9 (12.0-20.0); Calcium, Blood 9.4 mg/dL (8.5-10.1); Creatinine, Blood 0.61 mg/dL (0.40-1.00); Globulin, Blood 4.2 g/dL (2.2-4.0); Potassium, Blood 3.7 mmol/L (3.5-5.5); Total Protein, Blood 7.3 g/dL (6.4-8.2)
[2024-08-04 03:19] LABS: BAND PERCENT MAN 1 % (0-8); BASOPHILS PERCENT MAN 0 % (0-2); EOSINOPHILS PERCENT MAN 0 % (0-6); LYMPHOCYTES ABSOLUTE MAN 0.63 K/mm3 (0.84-5.20); LYMPHOCYTES PERCENT MAN 7 % (21-46); METAMYELOCYTE ABSOLUTE MAN 0.09 K/mm3 (0.00-0.00); METAMYELOCYTE PERCENT MAN 1 % (0-0); MONOCYTES ABSOLUTE MAN 0.09 K/mm3 (0.16-1.47); MONOCYTES PERCENT MAN 1 % (4-13); NEUTROPHILS ABSOLUTE MAN 8.21 K/mm3 (1.96-9.15); SEG NEUTROPHILS PERCENT MAN 90 % (41-73); TOTAL CELLS COUNTED 100
[2024-08-04] MEDS ORDERED: NYAMYC1513 TOP (04:08)
[2024-08-04] MEDS ORDERED: Miconazole Nitrate 2% 85 GM PWD TOP PRN ×2 (04:15→18:10)
[2024-08-04] MEDS ORDERED: Metoprolol Tartrate 25 MG Tab PO STA (08:39)
[2024-08-04] MEDS ORDERED: Nicotine 7 MG PATCH TOP SCH (09:00)
--- NOTE | 2024-08-04 09:00 | NUR ---
PT BACK FROM [facility] PT BACK FROM [facility] AT APPROXIMATELY 0840. PT A&Ox4 UPON ARRIVAL COMMUNICATING NEEDS APPROPRIATELY. BP STABLE, SINUS 60's, DENIES CP/PRESSURE. SpO2> 92% ON RA, DENIES SOB. PT HAS R GROIN ACCESS, WNL, DRESSING C/D/I, NO OOZING, BRUISING, SWELLING, OR HEMATOMA. 10mLs OF AIR PLACED IN TR BAND ON R RADIAL ACCESS AT 0825 PER [facility] REPORT, SITE WNL, TR BAND AND ARM BOARD IN PLACE, NO OOZING, BRUISING, SWELLING, OR HEMATOMA. R AC ACCESS WNL, NO OOZING, BRUISING, SWELLING, OR HEMATOMA. PT EDUCATED ON LAYING FLAT AND RECOVER PROCESS FOR ALL SITES. CALL LIGHT IN REACH.
[2024-08-04] MEDS ORDERED: Ketorolac Tromethamine 15mg Vial IV PRN (09:20)
[2024-08-04] MEDS ORDERED: Nicotine 21 MG PATCH TOP SCH (10:00)
[2024-08-04] MEDS ORDERED: Insulin Human Lispro 100 Units/ML 3ML Syringe SC ONE (11:45)
[2024-08-04] MEDS ORDERED: Insulin Human Lispro 100 Units/ML 3ML Syringe SC SCH ×2 (12:00→16:30)
[2024-08-04] MEDS ORDERED: Losartan Potassium 50 MG Tab PO SCH ×2 (12:00)
--- NOTE | 2024-08-04 14:15 | NUR ---
TRANSFER TO [facility] PT A&Ox4, CALLS AND COMMUNICATES NEEDS APPROPRIATELY. SpO2> 92% 6L VIA VENTI MASK, DENIES SOB. SINUS 90's, DENIES CP/PRESSURE. BP ELEVATED, DISCUSSED WITH RESIDENT, ORDERS PLACED FOR PO METOPROLOL. AFTER ADMINISTERING PO METOPROLOL, BP STILL ELEVATED, NOTIFIED RESIDENT TEAM, ORDERS PLACED FROM PO COZAAR. BP STILL ELEVATED AFTER ADMINISTERING PO COZAAR, NOTIFIED PHYSICIAN. PT IND IN ROOM. C/O HEADACHE AND RESTLESS LEGS, MEDCIATED PER EMAR. NO OTHER EVENTS, REPORT GIVEN TO MEDICAL RN. PT TRANSFERED WITH ALL BELONGINGS TO [facility] BY [facility] AT APPROXIMATELY 1400.
--- NOTE | 2024-08-04 16:20 | NUR ---
PATIENT IS ALERT AND ORIENTED AND COOPERATIVE WITH CARE. TRANSFER FROM PCU 2 THIS AFTERNOON. HYPERTENSIVE ON TRANSFER, MEDICATED BEFOREHAND. LATEST BP IS 159/86. DR. FRANCISCO PATINO RN THAT HE WANTS A CALL ABOUT HER HTN IF HER SBP IS GREATER THAN 180 mm Hg OR IF HER DBP IS GREATER THAN 110 mm Hg. PATIENT C/O RESTLESS LEGS AND HEADACHE, MEDICATED PER EMAR. THE PATIENT'S FRIEND VISITED THIS AFTERNOON. IND TO THE BATHROOM. ON 6L O2 VIA VENTI MASK. BREATHING TREATMENTS PER RT. WILL CONTINUE TO MONITOR
[2024-08-04] MEDS ORDERED: HydrALAZINE HCl 20 MG / ML 1ML Vial IV PRN (17:45)
[2024-08-04] MEDS ORDERED: NS 250 ML IV PRN (20:25)
[2024-08-04] MEDS ORDERED: Pramipexole DI-HCL 0.125 MG Tab PO SCH (21:00)
[2024-08-04] MEDS ORDERED: Misc. Tablet PO SCH (21:00)
[2024-08-04] MEDS ORDERED: PARoxetine HCl 20 MG Tab PO SCH (21:00)
[2024-08-04] MEDS ORDERED: Pregabalin 75 MG Cap PO SCH (21:00)
[2024-08-04] MEDS ORDERED: Metoprolol Succinate 25 MG TABCR PO SCH (21:00)
[2024-08-04] MEDS ORDERED: Topiramate 100 MG Tab PO SCH (21:00)
[2024-08-04] MEDS ORDERED: Pravastatin Sodium 20 MG Tab PO SCH (21:00)
[2024-08-05 02:19] VITALS: BP 168/92
--- NOTE | 2024-08-05 05:34 | NUR ---
SHIFT SUMMARY PATIENT IS ALERT AND ORIENTED. PATIENT HAS BEEN PLEASENT AND COOPERATIVE WITH CARE. PATIENT HAS COMPLAINED OF PAIN THIS SHIFT, MEDICATED PER EMAR. PATIENT COMPLAINED OF ANXIETY THIS SHIFT, MEDICATED PER EMAR. PATIENT HAS HAD NO COMPLAINTS OF SOB OR VOMITTING THIS SHIFT. VITAL SIGNS REVIEWED. WILL MONITOR UNTIL SHIFT CHANGE.
[2024-08-05 07:23] LABS: BASOPHILS ABSOLUTE AUTO 0.03 K/mm3 (0.00-0.23); BASOPHILS PERCENT AUTO 0 % (0-2); EOSINOPHILS PERCENT AUTO 0 % (0-6); Hematocrit 43.3 % (33.0-51.0); Hemoglobin 14.4 g/dL (11.5-16.0); IMMATURE GRAN ABSOLUTE AUTO 0.22 K/mm3 (0.00-0.10); IMMATURE GRAN PERCENT AUTO 1 % (0-1); LYMPHOCYTES PERCENT AUTO 7 % (21-46); MONOCYTES ABSOLUTE AUTO 0.73 K/mm3 (0.16-1.47); MONOCYTES PERCENT AUTO 4 % (4-13); Mean Corpuscular HGB 32.4 pg (26.0-34.0); Mean Corpuscular HGB Conc 33.3 g/dL (31.5-36.5); Mean Corpuscular Volume 98 fL (80-100); NEUTROPHILS ABSOLUTE AUTO 17.37 K/mm3 (1.96-9.15); NEUTROPHILS PERCENT AUTO 88 % (41-73); Platelet Count 295 K/mm3 (150-400); RDW Coefficient Variation 13.7 % (11.7-14.2); RDW Standard Deviation 48.9 fL (35.1-46.3); Red Blood Cell Count 4.44 M/mm3 (3.80-5.20); White Blood Cell Count 19.65 K/mm3 (4.00-11.30)
[2024-08-05 08:05] VITALS: BP 155/79
[2024-08-05 08:09] LABS: Albumin/Globulin Ratio 0.8 (0.8-1.8); Bilirubin, Total 0.2 mg/dL (0.1-1.0); Bun/Creatinine Ratio 31.2 (12.0-20.0); Creatinine, Blood 0.71 mg/dL (0.40-1.00); Globulin, Blood 3.9 g/dL (2.2-4.0); Potassium, Blood 4.1 mmol/L (3.5-5.5); Total Protein, Blood 6.9 g/dL (6.4-8.2)
[2024-08-05] MEDS ORDERED: Insulin Regular 100 UNIT/ML 10ML Vial SC SCH (12:00)
[2024-08-05] MEDS ORDERED: ALBU2.5V5 INH (12:51)
[2024-08-05] MEDS ORDERED: VISBIOME 112.51 EACH PO (12:52)
[2024-08-05] MEDS ORDERED: LEVO750 PO (12:52)
[2024-08-05] MEDS ORDERED: PRED20 PO (12:52)
[2024-08-05] MEDS ORDERED: TRAM50 PO (12:53)
== END 2024-08-05 13:28 | disposition home or self-care (01) | DRG 193 ==
LOC: ER 16:19 → PCU 22:36 → ERHOLD 22:36 → PCU 08-04 01:47 → MEDS 08-04 14:03
PROVIDERS: Student in an Organized Health Care Education/Training Program; ADMIT Internal Medicine
DX: J18.9 Pneumonia, unspecified organism (principal); J96.21 Acute and chronic respiratory failure with hypoxia; I42.0 Dilated cardiomyopathy; J44.1 Chronic obstructive pulmonary disease with (acute) exacerbation; Z68.42 Body mass index [BMI] 45.0-49.9, adult; F41.9 Anxiety disorder, unspecified; F32.A Depression, unspecified; E11.9 Type 2 diabetes mellitus without complications; I10 Essential (primary) hypertension; G25.81 Restless legs syndrome; E78.5 Hyperlipidemia, unspecified; I44.0 Atrioventricular block, first degree; G47.30 Sleep apnea, unspecified; Z79.899 Other long term (current) drug therapy; Z79.84 Long term (current) use of oral hypoglycemic drugs; Z88.0 Allergy status to penicillin; Z88.2 Allergy status to sulfonamides; Z88.8 Allergy status to other drugs, medicaments and biological substances; Z91.048 Other nonmedicinal substance allergy status; Z88.1 Allergy status to other antibiotic agents; Z88.5 Allergy status to narcotic agent; Z91.148 Patient's other noncompliance with medication regimen for other reason; F17.210 Nicotine dependence, cigarettes, uncomplicated; Z79.4 Long term (current) use of insulin; Z90.710 Acquired absence of both cervix and uterus; Z90.49 Acquired absence of other specified parts of digestive tract; Z90.79 Acquired absence of other genital organ(s); Z86.19 Personal history of other infectious and parasitic diseases; Z98.890 Other specified postprocedural states; Z86.711 Personal history of pulmonary embolism
CPT/HCPCS: 0241U; 36415; 71045; 71260; 80053; 82947; 83880; 84484; 85025; 90656; 93005; 93010; 94640; 94644; 94660; 94664; 94762; 96365; 96375; 99285-25; A9270; J0456; J1650; J1815; J1885; J1956; J2919; J7050; Q9967

== ENCOUNTER 2024-08-18 17:33 | Emergency (ER) | payer OTHER ==
[~2024-08-18] VITALS: Ht 160 cm; Wt 122.0 kg
[~2024-08-18 17:33] MED LIST changes: +ALBU2.5V5 INH; +BUSP10 PO; +NYAMYC1513 TOP; +PRED20 PO; +TOPI100 PO; +TRAM50 PO
[2024-08-18 18:22] LABS: Mean Corpuscular HGB 32.2 pg (26.0-34.0); Mean Corpuscular HGB Conc 32.6 g/dL (31.5-36.5); Mean Corpuscular Volume 99 fL (80-100); Mean Platelet Volume 9.8 fL (9.1-12.4); Platelet Count 243 K/mm3 (150-400); RDW Coefficient Variation 13.2 % (11.7-14.2); RDW Standard Deviation 48.3 fL (35.1-46.3); Red Blood Cell Count 4.35 M/mm3 (3.80-5.20); White Blood Cell Count 18.38 K/mm3 (4.00-11.30)
[2024-08-18 18:37] LABS: Albumin, Blood 2.7 g/dL (3.4-5.0); Albumin/Globulin Ratio 0.9 (0.8-1.8); Bilirubin, Total 0.3 mg/dL (0.1-1.0); Bun/Creatinine Ratio 32.7 (12.0-20.0); Calcium, Blood 8.5 mg/dL (8.5-10.1); Creatinine, Blood 0.73 mg/dL (0.40-1.00); Globulin, Blood 3.1 g/dL (2.2-4.0); Total Protein, Blood 5.8 g/dL (6.4-8.2)
[2024-08-18 18:46] LABS: BASOPHILS ABSOLUTE MAN 0.18 K/mm3 (0.00-0.23); BASOPHILS PERCENT MAN 1 % (0-2); EOSINOPHILS ABSOLUTE MAN 0.36 K/mm3 (0.00-0.68); EOSINOPHILS PERCENT MAN 2 % (0-6); LYMPHOCYTES % ATYPICAL MANUAL 2 % (0-0); LYMPHOCYTES ABSOLUTE MAN 6.06 K/mm3 (0.84-5.20); LYMPHOCYTES PERCENT MAN 31 % (21-46); MONOCYTES ABSOLUTE MAN 0.91 K/mm3 (0.16-1.47); MONOCYTES PERCENT MAN 5 % (4-13); NEUTROPHILS ABSOLUTE MAN 10.84 K/mm3 (1.96-9.15); SEG NEUTROPHILS PERCENT MAN 59 % (41-73); TOTAL CELLS COUNTED 100
[2024-08-18] MEDS ORDERED: ONDA4 PO (20:18)
[2024-08-18] MEDS ORDERED: FAMO20 PO (20:18)
[2024-08-18 20:50] VITALS: BP 155/82
== END 2024-08-18 20:53 | disposition home or self-care (01) ==
LOC: ER 17:33
PROVIDERS: Student in an Organized Health Care Education/Training Program
DX: R10.13 Epigastric pain (principal); J44.9 Chronic obstructive pulmonary disease, unspecified; E11.9 Type 2 diabetes mellitus without complications; I10 Essential (primary) hypertension; E78.5 Hyperlipidemia, unspecified; G47.33 Obstructive sleep apnea (adult) (pediatric); F17.210 Nicotine dependence, cigarettes, uncomplicated; Z79.51 Long term (current) use of inhaled steroids; Z79.899 Other long term (current) drug therapy; Z88.0 Allergy status to penicillin; Z88.2 Allergy status to sulfonamides; Z88.1 Allergy status to other antibiotic agents; Z91.048 Other nonmedicinal substance allergy status; Z88.5 Allergy status to narcotic agent; Z88.8 Allergy status to other drugs, medicaments and biological substances
CPT/HCPCS: 74177; 80053; 83690; 83735; 85025; 99284-25; Q9967

== ENCOUNTER → 2024-11-09 | Outpatient (CLI) | payer OTHER ==
[~2024-11-09] MED LIST changes: +FAMO20 PO; +ONDA4 PO
[2024-11-09 19:49] LABS: Creatinine, Urine Random 86.7 mg/dL (27.00-270.00); Microalb/Creat Ratio UR, Rand 219.146 mg/g (0.000-30.000)
== END ==
LOC: LAB SHORT 16:11
PROVIDERS: Nurse Practitioner Family
DX: N39.0 Urinary tract infection, site not specified (principal); E11.8 Type 2 diabetes mellitus with unspecified complications; I10 Essential (primary) hypertension
CPT/HCPCS: 82043; 82570; 87077; 87086; 87186

== ENCOUNTER → 2024-11-14 | Outpatient (CLI) | payer OTHER ==
[~2024-11-14] MED LIST changes: +CATAPRES0.1 MG PO; +TOPI25C; +TOPI25C PO
[2024-11-14 19:43] LABS: Creatinine, Urine Random 38.3 mg/dL (27.00-270.00)
[2024-11-14 19:46] LABS: Microalb/Creat Ratio UR, Rand 56.658 mg/g (0.000-30.000); Microalbumin, Random Urine 21.7 mg/L (0.000-20.000)
[2024-11-14 20:27] LABS: Adenovirus F 40/41 Not Detected (NOT DETECT); Astrovirus Not Detected (NOT DETECT); Campylobacter Sp Not Detected (NOT DETECT); Cryptosporidium Not Detected (NOT DETECT); Cyclospora Cayetanensis Not Detected (NOT DETECT); E. Coli O157 Not Detected (NOT DETECT); Entamoeba Histolytica Not Detected (NOT DETECT); Enteroaggregative E. coli-EAEC Not Detected (NOT DETECT); Enteropathogenic E. coli-EPEC Not Detected (NOT DETECT); Enterotoxigenic E. coli-ETEC Not Detected (NOT DETECT); Giardia Lamblia Not Detected (NOT DETECT); Norovirus GI/GII Not Detected (NOT DETECT); Plesiomonas Shigelloides Not Detected (NOT DETECT); Rotavirus A Not Detected (NOT DETECT); Salmonella Sp Not Detected (NOT DETECT); Sapovirus Not Detected (NOT DETECT); Shiga Toxin-prod E. coli-STEC Not Detected (NOT DETECT); Shigella/Enteroin E. coli-EIEC Not Detected (NOT DETECT); Vibrio Cholerae Not Detected (NOT DETECT); Vibrio Sp Not Detected (NOT DETECT); Yersinia Enterocolitica Not Detected (NOT DETECT)
[2024-11-18 10:01] LABS: CALPROTECTIN,FECAL 17 ug/g (<=49)
[2024-11-18 16:29] LABS: PANCREATIC ELASTASE,FECAL >800 ug/g (>=100)
== END ==
LOC: LAB 11:11 → LAB SHORT 11:11
PROVIDERS: Nurse Practitioner Family; Physician Assistant Medical
DX: R19.7 Diarrhea, unspecified (principal); R10.13 Epigastric pain
CPT/HCPCS: 82043; 82570; 82653; 83993; 87507

== ENCOUNTER 2024-12-03 21:14 | Inpatient (IN) | payer OTHER ==
[~2024-12-03] VITALS: Ht 160 cm; Wt 126.1 kg
[~2024-12-03 21:14] MED LIST changes: -BUSP10 PO; +BUSPIRONE HCL PO; -CATAPRES0.1 MG PO; -TOPI25C; -TOPI25C PO
[2024-12-03] MEDS ORDERED: Albuterol 2.5 MG/3 ML VIAL INH SCH ×2 (21:25→22:50)
[2024-12-03] MEDS ORDERED: Ipratropium Bromide INH 0.02% 0.5 mg/2.5ML Vial INH SCH ×2 (21:30→22:50)
[2024-12-03] MEDS ORDERED: MethylPREDNISolone Sod Succ 125 MG Vial IV ONE (21:30)
[2024-12-03 21:46] LABS: Base Excess Venous 1.6 mmol/L; Bicarbonate Venous 24.8 mmol/L (24.0-30.0); PCO2 Venous 43.7 mmHg (38-42); pH Blood Venous 7.39 (7.34-7.37)
[2024-12-03 21:54] LABS: BASOPHILS ABSOLUTE AUTO 0.09 K/mm3 (0.00-0.23); BASOPHILS PERCENT AUTO 1 % (0-2); EOSINOPHILS ABSOLUTE AUTO 0.56 K/mm3 (0.00-0.68); EOSINOPHILS PERCENT AUTO 5 % (0-6); Hematocrit 47.7 % (33.0-51.0); Hemoglobin 15.7 g/dL (11.5-16.0); IMMATURE GRAN PERCENT AUTO 1 % (0-1); LYMPHOCYTES ABSOLUTE AUTO 3.27 K/mm3 (0.84-5.20); LYMPHOCYTES PERCENT AUTO 31 % (21-46); MONOCYTES ABSOLUTE AUTO 0.81 K/mm3 (0.16-1.47); MONOCYTES PERCENT AUTO 8 % (4-13); Mean Corpuscular HGB 32.8 pg (26.0-34.0); Mean Corpuscular HGB Conc 32.9 g/dL (31.5-36.5); Mean Corpuscular Volume 100 fL (80-100); Mean Platelet Volume 9.7 fL (9.1-12.4); NEUTROPHILS ABSOLUTE AUTO 5.69 K/mm3 (1.96-9.15); NEUTROPHILS PERCENT AUTO 54 % (41-73); Platelet Count 316 K/mm3 (150-400); RDW Coefficient Variation 13.8 % (11.7-14.2); RDW Standard Deviation 51.5 fL (35.1-46.3); Red Blood Cell Count 4.78 M/mm3 (3.80-5.20); White Blood Cell Count 10.52 K/mm3 (4.00-11.30)
[2024-12-03 22:19] LABS: Albumin, Blood 3.1 g/dL (3.4-5.0); Albumin/Globulin Ratio 0.7 (0.8-1.8); Bilirubin, Total 0.3 mg/dL (0.1-1.0); Bun/Creatinine Ratio 16.5 (12.0-20.0); Calcium, Blood 9.4 mg/dL (8.5-10.1); Creatinine, Blood 0.73 mg/dL (0.40-1.00); Globulin, Blood 4.2 g/dL (2.2-4.0); Potassium, Blood 4.4 mmol/L (3.5-5.5); Total Protein, Blood 7.3 g/dL (6.4-8.2)
[2024-12-03] MEDS ORDERED: Aspirin 325 MG Tab PO ONE (22:50)
[2024-12-03] MEDS ORDERED: Guaifenesin/Dextromethorphan Syrup 5 ML UDC PO PRN (23:05)
[2024-12-03] MEDS ORDERED: Ondansetron HCl 2 MG / ML 2ML Vial IV PRN (23:05)
[2024-12-03] MEDS ORDERED: Ipratropium/Albuterol SulF 2.5-0.5MG/3 ML Amp INH PRN (23:05)
[2024-12-03] MEDS ORDERED: FLU VACC TS2024-25(6MOS UP)/PF 45 MCG/0.5 ML SYRINGE IM ONE (23:05)
[2024-12-04] MEDS ORDERED: MethylPREDNISolone Sod Succ 125 MG Vial IV SCH
[2024-12-04] MEDS ORDERED: TOPI25C (00:12)
[2024-12-04] MEDS ORDERED: TOPI25C PO (00:15)
[2024-12-04] MEDS ORDERED: CATAPRES0.1 MG PO (00:18)
[2024-12-04] MEDS ORDERED: Azithromycin 500 MG in NS 250 ML IV SCH (00:18)
[2024-12-04 00:20] LABS: Influenza A, PCR NEGATIVE (NEGATIVE); Influenza B, PCR NEGATIVE (NEGATIVE); Resp Syncytial Virus, PCR NEGATIVE (NEGATIVE); SARS-Cov-2 (COVID-19) PCR, MMC NEGATIVE (NEGATIVE)
[2024-12-04] MEDS ORDERED: Enoxaparin 40 MG/0.4 ML SYR SC SCH (00:21)
[2024-12-04] MEDS ORDERED: FLU VACC TS2024-25(6MOS UP)/PF 45 MCG/0.5 ML SYRINGE IM ONE (02:10)
[2024-12-04 02:14] VITALS: BP 144/66
[2024-12-04] MEDS ORDERED: CefTRIAXone Sodium 1,000 MG in NS 100 ML IV SCH (04:40)
[2024-12-04 04:58] LABS: BASOPHILS ABSOLUTE AUTO 0.08 K/mm3 (0.00-0.23); BASOPHILS PERCENT AUTO 1 % (0-2); EOSINOPHILS ABSOLUTE AUTO 0.01 K/mm3 (0.00-0.68); EOSINOPHILS PERCENT AUTO 0 % (0-6); Hematocrit 45.4 % (33.0-51.0); Hemoglobin 14.6 g/dL (11.5-16.0); IMMATURE GRAN ABSOLUTE AUTO 0.19 K/mm3 (0.00-0.10); IMMATURE GRAN PERCENT AUTO 2 % (0-1); LYMPHOCYTES ABSOLUTE AUTO 0.89 K/mm3 (0.84-5.20); LYMPHOCYTES PERCENT AUTO 9 % (21-46); MONOCYTES ABSOLUTE AUTO 0.07 K/mm3 (0.16-1.47); MONOCYTES PERCENT AUTO 1 % (4-13); Mean Corpuscular HGB 32.5 pg (26.0-34.0); Mean Corpuscular HGB Conc 32.2 g/dL (31.5-36.5); Mean Corpuscular Volume 101 fL (80-100); Mean Platelet Volume 10.2 fL (9.1-12.4); NEUTROPHILS ABSOLUTE AUTO 8.93 K/mm3 (1.96-9.15); NEUTROPHILS PERCENT AUTO 88 % (41-73); Platelet Count 287 K/mm3 (150-400); RDW Coefficient Variation 13.8 % (11.7-14.2); RDW Standard Deviation 51.8 fL (35.1-46.3); Red Blood Cell Count 4.49 M/mm3 (3.80-5.20); White Blood Cell Count 10.17 K/mm3 (4.00-11.30)
[2024-12-04 05:11] LABS: Albumin/Globulin Ratio 0.7 (0.8-1.8); Bilirubin, Total 0.2 mg/dL (0.1-1.0); Bun/Creatinine Ratio 22.1 (12.0-20.0); Calcium, Blood 8.7 mg/dL (8.5-10.1); Creatinine, Blood 0.72 mg/dL (0.40-1.00); Globulin, Blood 4.3 g/dL (2.2-4.0); Magnesium, Blood 1.9 mg/dL (1.6-2.4); Potassium, Blood 4.2 mmol/L (3.5-5.5); Total Protein, Blood 7.3 g/dL (6.4-8.2)
[2024-12-04] MEDS ORDERED: Albuterol 2.5 MG/3 ML VIAL INH PRN (06:30)
[2024-12-04] MEDS ORDERED: Acetaminophen 325 MG TABLET PO PRN (06:35)
--- NOTE | 2024-12-04 06:36 | NUR ---
PATIENT IS A NEW ADMISSION TO PCU #6 TONIGHT. COMES WITH SOB AND SVT. REMAINS TACHY IN THE LOW 100'S. USES A SIMPLE MASK FOR OXYGEN INSTEAD OF NC DUE TO BEING UNCOMFORTABLE FOR HER. ALERT, ORIENTATED. SBA TO BSC SHORT OF BREATH WITH ACTIVITY. PATIENT IS A CURRENT SMOKER WITH A NICOTINE PATCH ON WHILE IN THE HOSPITAL. PATIENT STATES "I'M GOING TO QUIT NOW1!" "I HAVE MY FIRST GRANDBABY THAT WAS JUST BORN, I WANT TO LIVE FOR HER!" PATIENT COMES FROM HOME LIVES ALONE BUT HAS HH SERVICES TWICE A WEEK. PLAN FOR IV ABX AND NEB TREATMENTS. PLAN OF CARE INITIATED.
[2024-12-04] MEDS ORDERED: Insulin Human Lispro 100 Units/ML 3ML Syringe SC SCH ×2 (07:30→11:30)
[2024-12-04 07:43] VITALS: BP 124/62
[2024-12-04] MEDS ORDERED: Mometasone Furoate Inhaler 220 mcg 14 ACT INH SCH (07:55)
[2024-12-04] MEDS ORDERED: Miconazole Nitrate 2% 85 GM PWD TOP PRN (08:00)
[2024-12-04] MEDS ORDERED: Cyclobenzaprine HCl 10 MG Tab PO PRN (08:35)
[2024-12-04] MEDS ORDERED: CloNIDine 0.1 MG Tab PO SCH (09:00)
[2024-12-04] MEDS ORDERED: BusPIRone HCl 10 MG Tab PO SCH (09:00)
[2024-12-04] MEDS ORDERED: Insulin Glargine-Yfgn 100 Unit/mL 3 ML SYR SC SCH (09:00)
[2024-12-04] MEDS ORDERED: Nicotine 21 MG PATCH TOP SCH (09:00)
[2024-12-04 11:55] VITALS: BP 133/70
[2024-12-04 16:22] VITALS: BP 160/85
[2024-12-04] MEDS ORDERED: Meperidine HCl 50 MG/ML 1ML Injection IV PRN (18:10)
--- NOTE | 2024-12-04 18:42 | NUR ---
SHIFT NOTE: PT A/OX4 ABLE TO MAKE HER NEEDS KNONW. SHE IS ANXIOUS BUT REDIRECTABLE. SHE IS IN SINUS WITH RATES LOW 100S. SHE IS ON 3L NC/MASK. SHE IS A 1P ASSIST TO THE BSC AND FOR ASSISTANCE WITH ALL ADLS. PT REPORTS HEADACHE T/O DAY WITH MINIMAL RELIEF FROM TYLENOL. NOTIFIED, DEMOEROL REQUESTED BY PT FOR MIGRAINE RELIEF. CARE CONTINUES
[2024-12-04 19:24] VITALS: BP 161/79
[2024-12-04] MEDS ORDERED: Losartan Potassium 50 MG Tab PO SCH ×2 (21:00)
[2024-12-04] MEDS ORDERED: Topiramate 25 MG Tab PO SCH (21:00)
[2024-12-04] MEDS ORDERED: Docusate Sodium/Senna 1 Tab PO SCH (21:00)
[2024-12-04] MEDS ORDERED: Metoprolol Succinate 25 MG TABCR PO SCH (21:00)
[2024-12-04] MEDS ORDERED: LURASIDONE 60 MG PO SCH (21:00)
[2024-12-04] MEDS ORDERED: Pramipexole DI-HCL 1 Mg Tab PO SCH (21:00)
[2024-12-04] MEDS ORDERED: PARoxetine HCl 20 MG Tab PO SCH (21:00)
[2024-12-05 04:04] LABS: Hematocrit 43.1 % (33.0-51.0); Hemoglobin 14.2 g/dL (11.5-16.0)
[2024-12-05 04:17] VITALS: BP 142/75
[2024-12-05 04:29] LABS: Bun/Creatinine Ratio 25.2 (12.0-20.0); Calcium, Blood 9.1 mg/dL (8.5-10.1); Creatinine, Blood 0.71 mg/dL (0.40-1.00); Magnesium, Blood 2.3 mg/dL (1.6-2.4); Phosphorus, Blood 3.5 mg/dL (2.5-4.9); Potassium, Blood 4.5 mmol/L (3.5-5.5)
[2024-12-05 08:54] VITALS: BP 151/88
[2024-12-05] MEDS ORDERED: Lactobacil 2-S.Thermo-Bifido 1 1 Cap PO SCH (09:00)
[2024-12-05] MEDS ORDERED: Insulin Glargine-Yfgn 100 Unit/mL 3 ML SYR SC SCH (09:00)
[2024-12-05] MEDS ORDERED: MethylPREDNISolone Sod Succ 125 MG Vial IV SCH (09:00)
[2024-12-05] MEDS ORDERED: Pulmicort Fle180 MCG INH (12:39)
[2024-12-05] MEDS ORDERED: AZIT250 PO (12:39)
[2024-12-05 12:40] VITALS: BP 138/72
[2024-12-05] MEDS ORDERED: CEPH500 PO (12:42)
[2024-12-05] MEDS ORDERED: DEMEROL PO (12:43)
[2024-12-05] MEDS ORDERED: PRED20 PO (12:44)
--- NOTE | 2024-12-05 15:28 | NUR ---
DISCHARGE SUMMARY A&Ox4, CALLS AND COMMUNICATES NEEDS APPROPRIATELY. BP STABLE, SINUS 90's, DENIES CP/PRESSURE. SpO2> 90% 3L VIA NC, REPORTS INTERMITTENT SOB WITH NONPRODUCTIVE COUGH. SBA IN ROOM. C/O HEADACHE, MANAGED PER EMAR. DISCHARGE INSTRUCTIONS PROVIDED. ALL PT BELONGINGS GATHERED. PT TRANSFERED TO TRANSPORT WHEELCHAIR WITH SBA AND TAKEN OUT BY TRANSPORT STAFF AT APPROXIMATELY 1355.
[2024-12-07] MEDS ORDERED: PREG25 PO (00:48)
[2024-12-07] MEDS ORDERED: VITAMIN D310 MC4 PO (00:51)
== END 2024-12-05 14:00 | disposition home health service (06) | DRG 193 ==
LOC: ER 21:14 → PCU 23:00
PROVIDERS: Hospitalist; Student in an Organized Health Care Education/Training Program; ADMIT Internal Medicine
PROC: 5A09357 Assistance with Respiratory Ventilation, Less than 24 Consecutive Hours, Continuous Positive Airway Pressure (ICD-10-PCS; principal; 2024-12-04)
DX: J18.9 Pneumonia, unspecified organism (principal); J96.21 Acute and chronic respiratory failure with hypoxia; J44.1 Chronic obstructive pulmonary disease with (acute) exacerbation; I47.10 Supraventricular tachycardia, unspecified; J44.0 Chronic obstructive pulmonary disease with (acute) lower respiratory infection; F41.9 Anxiety disorder, unspecified; F32.A Depression, unspecified; E11.9 Type 2 diabetes mellitus without complications; I10 Essential (primary) hypertension; F17.210 Nicotine dependence, cigarettes, uncomplicated; G25.81 Restless legs syndrome; E78.5 Hyperlipidemia, unspecified; G47.33 Obstructive sleep apnea (adult) (pediatric); Z88.0 Allergy status to penicillin; Z88.2 Allergy status to sulfonamides; Z88.1 Allergy status to other antibiotic agents; Z88.5 Allergy status to narcotic agent; Z88.8 Allergy status to other drugs, medicaments and biological substances; Z79.899 Other long term (current) drug therapy; Z79.51 Long term (current) use of inhaled steroids; Z79.84 Long term (current) use of oral hypoglycemic drugs; Z99.81 Dependence on supplemental oxygen
CPT/HCPCS: 0241U; 36415; 71045; 80048; 80053; 82803; 82947; 83735; 83880; 84100; 84484; 85014; 85018; 85025; 90656; 93005; 93010; 94640; 94644; 94645; 94660; 94664; 94762; 96374; 99285-25; A9270; J0456; J0696; J1650; J1815; J2175; J2919; J7050

== ENCOUNTER 2024-12-06 16:58 | Inpatient (IN) | payer OTHER ==
[~2024-12-06] VITALS: Ht 160 cm; Wt 127.0 kg
[~2024-12-06 16:58] MED LIST changes: +CATAPRES0.1 MG PO; +DEMEROL PO; +NICO21TP TOP; -NICODERM CQ1 EA11 TOP; +Pulmicort Fle180 MCG INH; +TOPI25C
[2024-12-06 18:14] LABS: Base Excess Venous 0.5 mmol/L; Bicarbonate Venous 23.6 mmol/L (24.0-30.0); PCO2 Venous 58.2 mmHg (38-42); pH Blood Venous 7.28 (7.34-7.37)
[2024-12-06 18:51] LABS: BASOPHILS ABSOLUTE AUTO 0.05 K/mm3 (0.00-0.23); BASOPHILS PERCENT AUTO 0 % (0-2); EOSINOPHILS ABSOLUTE AUTO 0.01 K/mm3 (0.00-0.68); EOSINOPHILS PERCENT AUTO 0 % (0-6); Hematocrit 47.7 % (33.0-51.0); Hemoglobin 15.4 g/dL (11.5-16.0); IMMATURE GRAN ABSOLUTE AUTO 0.16 K/mm3 (0.00-0.10); IMMATURE GRAN PERCENT AUTO 1 % (0-1); LYMPHOCYTES ABSOLUTE AUTO 1.81 K/mm3 (0.84-5.20); LYMPHOCYTES PERCENT AUTO 13 % (21-46); MONOCYTES ABSOLUTE AUTO 0.34 K/mm3 (0.16-1.47); MONOCYTES PERCENT AUTO 3 % (4-13); Mean Corpuscular HGB 32.5 pg (26.0-34.0); Mean Corpuscular HGB Conc 32.3 g/dL (31.5-36.5); Mean Corpuscular Volume 101 fL (80-100); Mean Platelet Volume 10.3 fL (9.1-12.4); NEUTROPHILS ABSOLUTE AUTO 11.48 K/mm3 (1.96-9.15); NEUTROPHILS PERCENT AUTO 83 % (41-73); Platelet Count 339 K/mm3 (150-400); RDW Coefficient Variation 13.6 % (11.7-14.2); RDW Standard Deviation 51.4 fL (35.1-46.3); Red Blood Cell Count 4.74 M/mm3 (3.80-5.20); White Blood Cell Count 13.85 K/mm3 (4.00-11.30)
[2024-12-06 19:04] LABS: Albumin, Blood 3.2 g/dL (3.4-5.0); Albumin/Globulin Ratio 0.7 (0.8-1.8); Bilirubin, Total 0.2 mg/dL (0.1-1.0); Bun/Creatinine Ratio 26.9 (12.0-20.0); Calcium, Blood 9.2 mg/dL (8.5-10.1); Creatinine, Blood 0.97 mg/dL (0.40-1.00); Globulin, Blood 4.3 g/dL (2.2-4.0); Potassium, Blood 4.5 mmol/L (3.5-5.5); Total Protein, Blood 7.5 g/dL (6.4-8.2)
[2024-12-06] MEDS ORDERED: Ipratropium/Albuterol SulF 2.5-0.5MG/3 ML Amp INH ONE (21:20)
[2024-12-06] MEDS ORDERED: FLU VACC TS2024-25(6MOS UP)/PF 45 MCG/0.5 ML SYRINGE IM ONE (22:25)
[2024-12-06] MEDS ORDERED: Acetaminophen 325 MG TABLET PO PRN (22:25)
[2024-12-06] MEDS ORDERED: Docusate Sodium/Senna 1 Tab PO PRN (22:30)
[2024-12-06] MEDS ORDERED: Guaifenesin/Dextromethorphan Syrup 5 ML UDC PO PRN (22:30)
[2024-12-06] MEDS ORDERED: Cyclobenzaprine HCl 10 MG Tab PO PRN (22:30)
[2024-12-06 22:50] LABS: Base Excess Venous 3.1 mmol/L; Bicarbonate Venous 25.8 mmol/L (24.0-30.0); PCO2 Venous 54.3 mmHg (38-42); pH Blood Venous 7.34 (7.34-7.37)
[2024-12-06] MEDS ORDERED: LevoFLOXacin 750 MG/D5W 150ML 150 ML IV SCH (22:50)
[2024-12-06] MEDS ORDERED: BusPIRone HCl 10 MG Tab PO SCH (23:00)
[2024-12-06] MEDS ORDERED: Topiramate 25 MG Tab PO SCH (23:00)
[2024-12-06] MEDS ORDERED: Pramipexole DI-HCL 1 Mg Tab PO SCH (23:00)
[2024-12-07 00:13] VITALS: BP 148/69
[2024-12-07] MEDS ORDERED: NS 250 ML IV PRN (00:40)
[2024-12-07] MEDS ORDERED: Budesonide 1 MG/2 ML RESP INH SCH (00:45)
[2024-12-07] MEDS ORDERED: Albuterol 2.5 MG/3 ML VIAL INH PRN (00:45)
[2024-12-07] MEDS ORDERED: LYRICA225 M1 PO (00:48)
[2024-12-07] MEDS ORDERED: Ipratropium/Albuterol SulF 2.5-0.5MG/3 ML Amp INH SCH (00:50)
[2024-12-07] MEDS ORDERED: VITAMIN D325 MC3 PO (00:51)
[2024-12-07] MEDS ORDERED: Vitamin B Comple1 EA PO (00:52)
[2024-12-07] MEDS ORDERED: LORazepam 1 MG Tab PO ONE (02:00)
[2024-12-07 02:19] LABS: Hematocrit 45.3 % (33.0-51.0); Hemoglobin 14.7 g/dL (11.5-16.0); Mean Corpuscular HGB 32.3 pg (26.0-34.0); Mean Corpuscular HGB Conc 32.5 g/dL (31.5-36.5); Mean Corpuscular Volume 100 fL (80-100); Mean Platelet Volume 9.9 fL (9.1-12.4); Platelet Count 308 K/mm3 (150-400); RDW Coefficient Variation 13.6 % (11.7-14.2); RDW Standard Deviation 50.2 fL (35.1-46.3); Red Blood Cell Count 4.55 M/mm3 (3.80-5.20); White Blood Cell Count 15.89 K/mm3 (4.00-11.30)
[2024-12-07 02:29] LABS: Albumin, Blood 3.1 g/dL (3.4-5.0); Albumin/Globulin Ratio 0.8 (0.8-1.8); Bilirubin, Total 0.2 mg/dL (0.1-1.0); Bun/Creatinine Ratio 29.7 (12.0-20.0); Creatinine, Blood 0.87 mg/dL (0.40-1.00); Globulin, Blood 3.8 g/dL (2.2-4.0); Magnesium, Blood 2.5 mg/dL (1.6-2.4); Potassium, Blood 3.8 mmol/L (3.5-5.5); Total Protein, Blood 6.9 g/dL (6.4-8.2)
[2024-12-07 02:38] LABS: BASOPHILS PERCENT MAN 0 % (0-2); EOSINOPHILS PERCENT MAN 0 % (0-6); LYMPHOCYTES % ATYPICAL MANUAL 1 % (0-0); LYMPHOCYTES ABSOLUTE MAN 4.92 K/mm3 (0.84-5.20); LYMPHOCYTES PERCENT MAN 30 % (21-46); MONOCYTES ABSOLUTE MAN 0.95 K/mm3 (0.16-1.47); MONOCYTES PERCENT MAN 6 % (4-13); MYELOCYTE ABSOLUTE MAN 0.15 K/mm3 (0.00-0.00); MYELOCYTE PERCENT MAN 1 % (0-0); NEUTROPHILS ABSOLUTE MAN 9.85 K/mm3 (1.96-9.15); SEG NEUTROPHILS PERCENT MAN 62 % (41-73); TOTAL CELLS COUNTED 100
[2024-12-07] MEDS ORDERED: Lactated Ringer's 500 ML IV ONE (02:55)
[2024-12-07] MEDS ORDERED: Nystatin 100,000 Units/GM Powder 15 gm TOP PRN (03:45)
[2024-12-07] MEDS ORDERED: Miconazole Nitrate 2% 85 GM PWD TOP PRN (03:45)
[2024-12-07 04:30] VITALS: BP 153/81
[2024-12-07] MEDS ORDERED: MEPERIDINE 50 MG TABLET PO PRN (07:00)
[2024-12-07 07:14] VITALS: BP 156/86
[2024-12-07] MEDS ORDERED: Insulin Human Lispro 100 Units/ML 3ML Syringe SC SCH (07:30)
[2024-12-07] MEDS ORDERED: Lactobacil 2-S.Thermo-Bifido 1 1 Cap PO SCH (09:00)
[2024-12-07] MEDS ORDERED: Enoxaparin 40 MG/0.4 ML SYR SC SCH (09:00)
[2024-12-07] MEDS ORDERED: Insulin Glargine-Yfgn 100 Unit/mL 3 ML SYR SC SCH (09:00)
[2024-12-07] MEDS ORDERED: Nicotine 21 MG PATCH TOP SCH (09:00)
[2024-12-07] MEDS ORDERED: PredniSONE 20 MG Tab PO SCH (09:00)
[2024-12-07] MEDS ORDERED: Cholecalciferol 1000 Unit Tablet (=25MCG) PO SCH (09:00)
[2024-12-07] MEDS ORDERED: Vitamin B Complex 1 EA Softgel PO SCH (09:00)
[2024-12-07] MEDS ORDERED: CloNIDine 0.1 MG Tab PO SCH (09:00)
[2024-12-07 10:16] LABS: Anti-Xa UFH, PHA Monitoring <0.10 IU/mL; International Normalized Ratio 1.06; Prothrombin Time Results 11.3 Sec (9.7-11.5)
[2024-12-07] MEDS ORDERED: Heparin Sodium,Porcine/0.5 NS 500 ML IV SCH (10:35)
[2024-12-07] MEDS ORDERED: Heparin Sodium 5000 Units/ML 1ML MDV IV ONE (10:35)
[2024-12-07 12:07] VITALS: BP 149/75
[2024-12-07] MEDS ORDERED: CeFAZolin Sodium 1,000 MG in NS 50 ML IV SCH (16:00)
[2024-12-07] MEDS ORDERED: Dose Adjust by Pharmacy XX STA (17:53)
--- NOTE | 2024-12-07 18:25 | NUR ---
SHIFT SUMMARY PT A&OX4 AND ANSWERS QUESTIONS APPROPRIATELY. DR IN ROOM TO DISCUSS PT SYMPTOMS AND TESTS. PE SUSPECTED IN R LUNG. PT PLACED ON HEPARIN DRIP FOR TREATMENT OF PE. VSS, NO COMPLAINTS OF CP/PRESSURE OR SOB. PT RUNNING SINUS TACHY. PT SPENT MOST OF SHIFT IN BED RESTING, SOB W/ EXCERSION. NO ACUTE EVENTS AT THIS TIME. PT LEFT IN A POSITION OF SAFETY WITH FALL PRECAUTIONS IN PLACE, REPOSITIONED INDEPENDENTLY, CALL LIGHT IN REACH.
[2024-12-07 19:03] VITALS: BP 160/79
[2024-12-07] MEDS ORDERED: Azithromycin 500 MG in NS 250 ML IV SCH (21:00)
[2024-12-07] MEDS ORDERED: Pregabalin 75 MG Cap PO SCH (21:00)
[2024-12-07] MEDS ORDERED: Pravastatin Sodium 20 MG Tab PO SCH (21:00)
[2024-12-07] MEDS ORDERED: Metoprolol Succinate 25 MG TABCR PO SCH (21:00)
[2024-12-07] MEDS ORDERED: LURASIDONE 60 MG PO SCH (21:00)
[2024-12-07] MEDS ORDERED: Losartan Potassium 50 MG Tab PO SCH (21:00)
[2024-12-07] MEDS ORDERED: PARoxetine HCl 20 MG Tab PO SCH (21:00)
[2024-12-07] MEDS ORDERED: LORazepam 1 MG Tab PO PRN (22:50)
[2024-12-07 23:09] VITALS: BP 140/64
[2024-12-08] VITALS (7 sets, daily range): BP systolic 149–177; BP diastolic 79–94
[2024-12-08 00:25] LABS: BASOPHILS ABSOLUTE AUTO 0.05 K/mm3 (0.00-0.23); BASOPHILS PERCENT AUTO 0 % (0-2); EOSINOPHILS ABSOLUTE AUTO 0.04 K/mm3 (0.00-0.68); EOSINOPHILS PERCENT AUTO 0 % (0-6); Hematocrit 44.3 % (33.0-51.0); Hemoglobin 14.7 g/dL (11.5-16.0); IMMATURE GRAN ABSOLUTE AUTO 0.22 K/mm3 (0.00-0.10); IMMATURE GRAN PERCENT AUTO 1 % (0-1); LYMPHOCYTES PERCENT AUTO 23 % (21-46); MONOCYTES ABSOLUTE AUTO 1.22 K/mm3 (0.16-1.47); MONOCYTES PERCENT AUTO 7 % (4-13); Mean Corpuscular HGB 33.1 pg (26.0-34.0); Mean Corpuscular HGB Conc 33.2 g/dL (31.5-36.5); Mean Corpuscular Volume 100 fL (80-100); Mean Platelet Volume 9.9 fL (9.1-12.4); NEUTROPHILS ABSOLUTE AUTO 11.08 K/mm3 (1.96-9.15); NEUTROPHILS PERCENT AUTO 68 % (41-73); Platelet Count 299 K/mm3 (150-400); RDW Coefficient Variation 13.3 % (11.7-14.2); Red Blood Cell Count 4.44 M/mm3 (3.80-5.20); White Blood Cell Count 16.41 K/mm3 (4.00-11.30)
[2024-12-08 00:47] LABS: Albumin, Blood 3.1 g/dL (3.4-5.0); Albumin/Globulin Ratio 0.9 (0.8-1.8); Bilirubin, Total 0.2 mg/dL (0.1-1.0); Bun/Creatinine Ratio 28.8 (12.0-20.0); Calcium, Blood 8.9 mg/dL (8.5-10.1); Creatinine, Blood 0.76 mg/dL (0.40-1.00); Globulin, Blood 3.6 g/dL (2.2-4.0); Magnesium, Blood 2.4 mg/dL (1.6-2.4); Potassium, Blood 3.8 mmol/L (3.5-5.5); Total Protein, Blood 6.7 g/dL (6.4-8.2)
[2024-12-08 08:50] LABS: Base Excess Venous 2.5 mmol/L; Bicarbonate Venous 25.9 mmol/L (24.0-30.0); PCO2 Venous 48.7 mmHg (38-42); pH Blood Venous 7.37 (7.34-7.37)
[2024-12-08] MEDS ORDERED: Dose Adjust by Pharmacy XX STA ×2 (13:51→20:29)
[2024-12-08] MEDS ORDERED: Heparin Sodium 5000 Units/ML 1ML MDV IV ONE (13:55)
[2024-12-08] MEDS ORDERED: ALBU90OI INH (15:12)
--- NOTE | 2024-12-08 16:09 | NUR ---
Spiritual care visit conducted. Rose (pt) is awake and alert. I begin by engaging with pt about this rastafarian belief system. Pt has a history with episcopal and felt alienated by the samaritan because of theological issues related to her children's lifestyle. Pt quotes scripture on multiple occasions and displays a deep understanding of the sherie in spite of this challenging experience. Pt believes "all are one" and "there's more than one way to peel a banana." Pt's disparate beliefs exist harmoniously. Provided compassionate and active listening. Demonstrated interfaith understanding by participating in chanting with pt and sharing a rastafarian mindfulness invocation. Pt says that during chanting she "sensed peace within me." Pt shares about her challenging marriage and her deep foundation built upon unconditional forgiveness and maria del carmen. Pt appears more at ease following demonstration of my understanding of and participation in her belief system.
--- NOTE | 2024-12-08 17:30 | NUR ---
SHIFT SUMMARY PATIENT ALERT AND INTERACTIVE. PATIENT UP TO CHAIR TODAY AND AMBULATING TO BR. PATIENT CONTINUES ON 02. ATTEMPTED TO TITRATE DOWN CURRENTLY AT 5 LITERS. HEPARIN ADJUSTED BY PHARMACY AND BOLUS GIVEN PER ORDERS. PATIENT STATES THAT SHE IS FEELING LESS SHORT OF BREATH TODAY THAN PREVIOUS AND IS EAGER TO GET HOME TO HER DOG WHO SHE REPORTS IS HER SUPPORT ANIMAL.
[2024-12-09 02:26] LABS: Calcium, Blood 8.7 mg/dL (8.5-10.1); Creatinine, Blood 0.77 mg/dL (0.40-1.00); Potassium, Blood 3.6 mmol/L (3.5-5.5)
[2024-12-09 02:34] LABS: BASOPHILS ABSOLUTE AUTO 0.08 K/mm3 (0.00-0.23); BASOPHILS PERCENT AUTO 1 % (0-2); EOSINOPHILS PERCENT AUTO 1 % (0-6); Hematocrit 41.9 % (33.0-51.0); Hemoglobin 13.7 g/dL (11.5-16.0); IMMATURE GRAN ABSOLUTE AUTO 0.28 K/mm3 (0.00-0.10); IMMATURE GRAN PERCENT AUTO 2 % (0-1); LYMPHOCYTES ABSOLUTE AUTO 4.42 K/mm3 (0.84-5.20); LYMPHOCYTES PERCENT AUTO 30 % (21-46); MONOCYTES ABSOLUTE AUTO 0.91 K/mm3 (0.16-1.47); MONOCYTES PERCENT AUTO 6 % (4-13); Mean Corpuscular HGB 32.9 pg (26.0-34.0); Mean Corpuscular HGB Conc 32.7 g/dL (31.5-36.5); Mean Corpuscular Volume 101 fL (80-100); Mean Platelet Volume 10.1 fL (9.1-12.4); NEUTROPHILS ABSOLUTE AUTO 8.79 K/mm3 (1.96-9.15); NEUTROPHILS PERCENT AUTO 60 % (41-73); Platelet Count 274 K/mm3 (150-400); RDW Coefficient Variation 13.2 % (11.7-14.2); RDW Standard Deviation 49.3 fL (35.1-46.3); Red Blood Cell Count 4.17 M/mm3 (3.80-5.20); White Blood Cell Count 14.68 K/mm3 (4.00-11.30)
[2024-12-09] MEDS ORDERED: Dose Adjust by Pharmacy XX STA (03:25)
[2024-12-09 03:35] VITALS: BP 164/90
[2024-12-09 07:52] VITALS: BP 156/78
--- NOTE | 2024-12-09 09:00 | NUR ---
Pt laying in bed, gets herself to bsc and back, a/ox4, pleasant and coopertive with care, follows commands well, denies pain, lungs have insp/exp wheezing t/o, resp even and unlabored on 6 liters o2, she is home o2 dep on 6 liters at hs, will wean down, hrr, no edema noted, ppp+1, cap refill <3 sec vs stable afebrile, piv to rfa site is clear and patent, btx4, abd round soft nontender, voids without diff, skin c/w/d, maew, caleb, call light in reach.
[2024-12-09] MEDS ORDERED: Apixaban 5 MG Tab PO SCH (12:29)
[2024-12-09 15:13] VITALS: BP 165/87
[2024-12-09] MEDS ORDERED: ELIQUIS5 M2 PO (16:29)
[2024-12-09] MEDS ORDERED: PRED20 PO (16:32)
[2024-12-09] MEDS ORDERED: DEMEROL PO (16:32)
[2024-12-09] MEDS ORDERED: TRELEGY ELLIPT1 EACH INH (16:33)
--- NOTE | 2024-12-09 18:05 | NUR ---
pt did well today, heperin gtt was stopped and started on oral blood thinner, she does qualify for 2 liters of 02 during the day, waiting on tank to be delivered, she is eating dinner at this time, will call for ride when o2 arrives. call light in reach.
--- NOTE | 2024-12-09 19:29 | NUR ---
pt has been discharged to home, went over discharge instructions with her, she verbalized understanding, iv removed intact, new medication [facility]ed to [facility], ptbl 02 tank delivered, she was instructed on it's use. left via wheelchair with all her belongings.
[2024-12-16] MEDS ORDERED: Apixaban 5 MG Tab PO SCH (09:00)
== END 2024-12-09 19:24 | disposition home health service (06) | DRG 175 ==
LOC: ER 16:58 → MEDS 16:59
PROVIDERS: Emergency Medicine; Internal Medicine; ADMIT Student in an Organized Health Care Education/Training Program
PROC: 5A09357 Assistance with Respiratory Ventilation, Less than 24 Consecutive Hours, Continuous Positive Airway Pressure (ICD-10-PCS; principal; 2024-12-06)
DX: I26.99 Other pulmonary embolism without acute cor pulmonale (principal); J18.9 Pneumonia, unspecified organism; J96.21 Acute and chronic respiratory failure with hypoxia; J96.22 Acute and chronic respiratory failure with hypercapnia; J44.0 Chronic obstructive pulmonary disease with (acute) lower respiratory infection; J44.1 Chronic obstructive pulmonary disease with (acute) exacerbation; E87.20 Acidosis, unspecified; I47.10 Supraventricular tachycardia, unspecified; Z68.42 Body mass index [BMI] 45.0-49.9, adult; F41.9 Anxiety disorder, unspecified; Z87.891 Personal history of nicotine dependence; F32.A Depression, unspecified; G47.33 Obstructive sleep apnea (adult) (pediatric); E66.9 Obesity, unspecified; E11.9 Type 2 diabetes mellitus without complications; E78.5 Hyperlipidemia, unspecified; I10 Essential (primary) hypertension; G25.81 Restless legs syndrome; Z86.711 Personal history of pulmonary embolism; Z88.0 Allergy status to penicillin; Z91.048 Other nonmedicinal substance allergy status; Z88.2 Allergy status to sulfonamides; Z88.8 Allergy status to other drugs, medicaments and biological substances; Z88.5 Allergy status to narcotic agent; Z90.722 Acquired absence of ovaries, bilateral; Z90.710 Acquired absence of both cervix and uterus; Z90.49 Acquired absence of other specified parts of digestive tract; Z98.890 Other specified postprocedural states; Z99.81 Dependence on supplemental oxygen
CPT/HCPCS: 36415; 71046; 71260; 80048; 80053; 82803; 82947; 83605; 83735; 84145; 84484; 85025; 85379; 85520; 85610; 85730; 87070; 87205; 93005; 93010; 93306; 94640; 94660; 94664; 94761; 94762; 96361; 96374; 96375; 99285-25; A9270; G0378; J0456; J1644; J1815; J1956; J7050; J7120; J7512; J7626; Q9967

== ENCOUNTER 2025-01-10 12:23 | Emergency (ER) | payer OTHER ==
[~2025-01-10] VITALS: Ht 160 cm; Wt 128.4 kg
[~2025-01-10 12:23] MED LIST changes: +ALBU90OI INH; +ELIQUIS5 M2 PO; +LYRICA225 M1 PO; +TRELEGY ELLIPT1 EACH INH; +VITAMIN D325 MC3 PO; +Vitamin B Comple1 EA PO
[2025-01-10 12:28] VITALS: BP 129/83
[2025-01-10] MEDS ORDERED: TraMADol HCl 50 MG Tab PO ONE (12:40)
== END 2025-01-10 14:21 | disposition home or self-care (01) ==
LOC: ER 12:23
DX: G89.29 Other chronic pain (principal); M54.50 Low back pain, unspecified; Z76.0 Encounter for issue of repeat prescription; J44.9 Chronic obstructive pulmonary disease, unspecified; I10 Essential (primary) hypertension; E11.9 Type 2 diabetes mellitus without complications; E78.5 Hyperlipidemia, unspecified; F17.200 Nicotine dependence, unspecified, uncomplicated; Z79.899 Other long term (current) drug therapy; Z79.52 Long term (current) use of systemic steroids; Z79.51 Long term (current) use of inhaled steroids; Z79.84 Long term (current) use of oral hypoglycemic drugs; Z88.0 Allergy status to penicillin; Z88.2 Allergy status to sulfonamides; Z88.1 Allergy status to other antibiotic agents; Z88.5 Allergy status to narcotic agent; Z91.048 Other nonmedicinal substance allergy status; Z88.8 Allergy status to other drugs, medicaments and biological substances
CPT/HCPCS: 99281; A9270

== ENCOUNTER → 2025-01-12 | Outpatient (CLI) | payer OTHER ==
[2025-01-12 15:46] LABS: Candida Group, PCR NOT DETECTED (NOT DETECT)
[2025-01-12 15:47] LABS: Bacterial Vaginosis PCR Positive (NEGATIVE); Candida glabrata-krusei, PCR DETECTED (NOT DETECT)
[2025-01-12 16:19] LABS: Chlamydia Trachomatis Vaginal NOT DETECTED (NOT DETECT); Neisseria Gonorrhoea Vaginal NOT DETECTED (NOT DETECT)
[2025-01-16 07:05] LABS: HSV 1 SUBTYPE BY PCR Not Detected; HSV 2 SUBTYPE BY PCR Not Detected; HSV SUBTYPE SOURCE VAGINAL LESION
== END ==
LOC: LAB 11:15 → LAB SHORT 11:15
PROVIDERS: Student in an Organized Health Care Education/Training Program
DX: N89.8 Other specified noninflammatory disorders of vagina (principal); Z72.51 High risk heterosexual behavior
CPT/HCPCS: 81515; 87491; 87529; 87591

== ENCOUNTER 2025-04-08 00:07 | Observation (INO) | payer OTHER ==
[~2025-04-08] VITALS: Ht 160 cm; Wt 125.1 kg
[~2025-04-08 00:07] MED LIST changes: +PRAMIPEXOLE DI0.5 M1 PO; -PRAMIPEXOLE DIHY1 M1 PO
[2025-04-08 00:41] LABS: BASOPHILS ABSOLUTE AUTO 0.10 K/mm3 (0.00-0.23); BASOPHILS PERCENT AUTO 1 % (0-2); EOSINOPHILS ABSOLUTE AUTO 0.33 K/mm3 (0.00-0.68); EOSINOPHILS PERCENT AUTO 3 % (0-6); Hematocrit 48.0 % (33.0-51.0); Hemoglobin 15.2 g/dL (11.5-16.0); IMMATURE GRAN ABSOLUTE AUTO 0.12 K/mm3 (0.00-0.10); IMMATURE GRAN PERCENT AUTO 1 % (0-1); LYMPHOCYTES ABSOLUTE AUTO 4.05 K/mm3 (0.84-5.20); LYMPHOCYTES PERCENT AUTO 34 % (21-46); MONOCYTES ABSOLUTE AUTO 0.80 K/mm3 (0.16-1.47); MONOCYTES PERCENT AUTO 7 % (4-13); Mean Corpuscular HGB Conc 31.7 g/dL (31.5-36.5); Mean Corpuscular Volume 99 fL (80-100); NEUTROPHILS ABSOLUTE AUTO 6.53 K/mm3 (1.96-9.15); NEUTROPHILS PERCENT AUTO 55 % (41-73); NRBC ABSOLUTE 0.00 K/mm3 (0.00-0.02); NRBC Auto 0.0 /100 WBC (0.0-0.2); Platelet Count 315 K/mm3 (150-400); RDW Coefficient Variation 14.0 % (11.7-14.2); RDW Standard Deviation 50.9 fL (35.1-46.3)
[2025-04-08 00:53] LABS: Alanine Aminotransfer (ALT/SGP 22.0 U/L (12-78); Albumin, Blood 3.1 g/dL (3.4-5.0); Albumin/Globulin Ratio 0.8 (0.8-1.8); Anion Gap 9.0 mmol/L (3-11); Aspartate Aminotrans (AST/SGOT 34.0 U/L (12-37); Bilirubin, Total 0.2 mg/dL (0.1-1.0); Blood Urea Nitrogen 13.0 mg/dL (8-24); CO2, Blood 23.0 mmol/L (21-32); Calcium, Blood 8.9 mg/dL (8.5-10.1); Chloride, Blood 111.0 mmol/L (98-108); Creatinine, Blood 0.9 mg/dL (0.40-1.00); Globulin, Blood 4.1 g/dL (2.2-4.0); Glucose, Blood 183.0 mg/dL (70-99); Potassium, Blood 4.3 mmol/L (3.5-5.5); Sodium, Blood 139.0 mmol/L (136-145); Total Protein, Blood 7.2 g/dL (6.4-8.2)
[2025-04-08 01:24] LABS: Magnesium, Blood 1.9 mg/dL (1.6-2.4); Phosphorus, Blood 3.4 mg/dL (2.5-4.9); Thyroid Stimulating Hormone 5.22 uIU/mL (0.360-4.800)
[2025-04-08] MEDS ORDERED: Ipratropium/Albuterol SulF 2.5-0.5MG/3 ML Amp INH ONE (03:05)
[2025-04-08] MEDS ORDERED: CefTRIAXone Sodium 2,000 MG in NS 100 ML IV ONE (04:05)
[2025-04-08] MEDS ORDERED: NS 1,000 ML IV SCH (05:00)
[2025-04-08] MEDS ORDERED: Albuterol 2.5 MG/3 ML VIAL INH SCH (05:20)
[2025-04-08] MEDS ORDERED: Ipratropium/Albuterol SulF 2.5-0.5MG/3 ML Amp INH SCH ×2 (05:20→14:05)
[2025-04-08 05:29] LABS: BASOPHILS ABSOLUTE AUTO 0.07 K/mm3 (0.00-0.23); BASOPHILS PERCENT AUTO 1 % (0-2); EOSINOPHILS ABSOLUTE AUTO 0.16 K/mm3 (0.00-0.68); EOSINOPHILS PERCENT AUTO 2 % (0-6); Hematocrit 44.9 % (33.0-51.0); Hemoglobin 14.6 g/dL (11.5-16.0); IMMATURE GRAN ABSOLUTE AUTO 0.10 K/mm3 (0.00-0.10); IMMATURE GRAN PERCENT AUTO 1 % (0-1); LYMPHOCYTES ABSOLUTE AUTO 1.62 K/mm3 (0.84-5.20); LYMPHOCYTES PERCENT AUTO 16 % (21-46); MONOCYTES ABSOLUTE AUTO 0.43 K/mm3 (0.16-1.47); MONOCYTES PERCENT AUTO 4 % (4-13); Mean Corpuscular HGB Conc 32.5 g/dL (31.5-36.5); Mean Corpuscular Volume 99 fL (80-100); NEUTROPHILS ABSOLUTE AUTO 8.00 K/mm3 (1.96-9.15); NEUTROPHILS PERCENT AUTO 77 % (41-73); NRBC ABSOLUTE 0.00 K/mm3 (0.00-0.02); NRBC Auto 0.0 /100 WBC (0.0-0.2); Platelet Count 266 K/mm3 (150-400); RDW Coefficient Variation 14.1 % (11.7-14.2); RDW Standard Deviation 51.2 fL (35.1-46.3)
[2025-04-08 06:14] LABS: Alanine Aminotransfer (ALT/SGP 19 U/L (12-78); Albumin, Blood 3.0 g/dL (3.4-5.0); Albumin/Globulin Ratio 0.8 (0.8-1.8); Anion Gap 7 mmol/L (3-11); Aspartate Aminotrans (AST/SGOT 32 U/L (12-37); Bilirubin, Total <0.1 mg/dL (0.1-1.0); Blood Urea Nitrogen 13 mg/dL (8-24); CO2, Blood 24 mmol/L (21-32); Calcium, Blood 8.3 mg/dL (8.5-10.1); Chloride, Blood 111 mmol/L (98-108); Creatinine, Blood 0.83 mg/dL (0.40-1.00); Globulin, Blood 4.0 g/dL (2.2-4.0); Glucose, Blood 197 mg/dL (70-99); Potassium, Blood 4.4 mmol/L (3.5-5.5); Sodium, Blood 138 mmol/L (136-145); Total Protein, Blood 7.0 g/dL (6.4-8.2)
--- NOTE | 2025-04-08 06:22 | NUR ---
ADMISSION NOTE PT ARRIVED TO 340 AT 0622. PT WAS AOX4, CALM AND COOPERATIVE. PT ON 4LNC, DYSPNEIC WHILE AT REST. PT 1PA UP TO BSC, BUT EXPLAINED TO PT TO USE CALL LIGHT IF IN NEED OF TOILETING. THIS RN TO ASSUME CARE.
[2025-04-08 06:27] VITALS: BP 145/79
[2025-04-08] MEDS ORDERED: Miconazole Nitrate 2% 85 GM PWD TOP PRN (07:15)
[2025-04-08] MEDS ORDERED: Insulin Regular 100 UNIT/ML 10ML Vial SC SCH (07:30)
[2025-04-08 07:39] VITALS: BP 143/99
[2025-04-08 07:49] VITALS: BP 146/87
[2025-04-08] MEDS ORDERED: Albuterol 2.5 MG/3 ML VIAL INH PRN (07:50)
--- NOTE | 2025-04-08 08:17 | NUR ---
0730- RT CAME IN ROOM AND CONT PULSE ALARMING, RN CAME IN RIGHT BEHIND. SATS 85% ON 4L/NC, INCREASED OXYGEN TO 7L HIGH FLOW. PT STATED HER BREATHING IS IMPROVED, BUT STATES THE REASON SHE CAME IN TO THE HOSPITAL WAS FOR TACHYCARDIA. PT STATED AROUND 0735 SHE WAS FEELING HER HEART RACING, CONT PULSE OX SAT NOW 88% 7L, RR 22, HR 160, PT DENIED DIZZINESS FELT TIRED AND LIKE HER HEART RACING. RT KENDAL CALLED DR VANEGAS AND SHE IS AWARE OF INCREASE O2 DEMAND AND HR. TELE CONNECTED BUT HR HAD COME DOWN TO 90 AT 0742, SELF TERMINATED, UNAWARE OF THE RHYTHM AT TIME OF TACHYCARDIA - TELE CONNECTED AT 0745- SR 90. PT FEELING BETTER AND WILL CONT TO ALEENA. RT HELD BREATHING TX FOR NOW
[2025-04-08] MEDS ORDERED: Enoxaparin 40 MG/0.4 ML SYR SC SCH (09:00)
[2025-04-08] MEDS ORDERED: LURASIDONE 60 MG TABLET PO SCH (09:00)
[2025-04-08 11:30] VITALS: BP 130/70
[2025-04-08 15:29] VITALS: BP 133/85
--- NOTE | 2025-04-08 18:04 | NUR ---
SUMMARY- PT A/O X4, SBA/INDEPENDANT, STEADY ON FEET, USES CALL LIGHT APPROPRIATELY. RESP DIM BASES, OCC WHEEZE. ROUTINE NEBS. OXYGEN WHILE AWAKE RANGED FROM 11L-4L. MOST OF THE DAY PT ON 5L, SATTING 90-94%. HR ELEVATED 90-100'S. PT'S SATS DROPED A FEW TIMES TODAY TO MID 80'S ON ROOM AIR, REMINDED PT SHE HAS TO WEAR HER OXYGEN AND RT SET UP CPAP AND PLACED ON PT DURING AFTERNOON NAP. PT C/O SEVERE RESTLESS LEG THIS AM, ORDER FOR ADDITIONAL MIRIPEX ADMIN. PT TOLERATING FOOD AND FLUIDS, VOIDING IN BATHROOM, PT STATES SHE HAS HAD. REGULAR BM'S. MICONOZOLE POWERE APPLIED TO SKIN FOLDS, MILD PINK, PT STATES SHE HAS BEEN TREATING YEAST RASH AT HOME. PINK AREAS ALMOST HEALED. WILL REPORT TO JORGE FARRELL
[2025-04-08 18:18] LABS: Influenza A/2009-H1 Not Detected (NOT DETECT); SARS-Cov-2 (COVID-19), BioFire Not Detected (NOT DETECT)
[2025-04-08 19:22] VITALS: BP 141/69
[2025-04-08] MEDS ORDERED: Ketorolac Tromethamine 15mg Vial IV ONE (22:00)
[2025-04-09 03:31] VITALS: BP 139/68
[2025-04-09] MEDS ORDERED: CefTRIAXone Sodium 1,000 MG in NS 100 ML IV SCH (04:30)
--- NOTE | 2025-04-09 07:26 | NUR ---
DATA STEWARD SUMMARY: PT A&O X4. MAKES NEEDS KNOWN. NO ACUTE EVENTS T/O SHIFT. NO SOB OR TACHYPNEA NOTED. TELE IN PLACE SR 80'S. CONTINENT OF BOWEL AND BLADDER. INDIPENDENT IN ROOM WITH CARES. PT STARTED C/O UTI SYMPTOMS AT SHIFT REPORT. DAY SHIFT RN TO F/U. BED IN LOWEST POSITION. CARES ONGOING ORDERED.
[2025-04-09 08:02] VITALS: BP 145/67
[2025-04-09 09:16] LABS: Anion Gap 10.0 mmol/L (3-11); Blood Urea Nitrogen 15.0 mg/dL (8-24); CO2, Blood 24.0 mmol/L (21-32); Calcium, Blood 8.8 mg/dL (8.5-10.1); Chloride, Blood 105.0 mmol/L (98-108); Creatinine, Blood 0.64 mg/dL (0.40-1.00); Glucose, Blood 383.0 mg/dL (70-99); Potassium, Blood 4.5 mmol/L (3.5-5.5); Sodium, Blood 134.0 mmol/L (136-145)
[2025-04-09 11:48] VITALS: BP 137/74
[2025-04-09] MEDS ORDERED: DILT120 PO (13:14)
[2025-04-09] MEDS ORDERED: Mucinex600 MG PO (13:15)
[2025-04-09] MEDS ORDERED: AZIT500 PO (13:16)
[2025-04-09] MEDS ORDERED: CEFU500T30 PO (13:17)
[2025-04-09] MEDS ORDERED: Prednisone10 MG PO (13:21)
--- NOTE | 2025-04-09 17:06 | NUR ---
KASHIF PT DISCHARGE HOME WITH CARGIVER. [facility] DELIVERED A TRANSPORT OXYGEN CYLINDER FOR HER. PT ACCOMPANIED OUT VIA W/C WITH ELLIE. CARE ONGOING.
== END 2025-04-09 17:22 | disposition home or self-care (01) ==
LOC: ER 00:07 → MEDS 00:08 → ER 04:58 → MEDS 04:58
PROVIDERS: Emergency Medicine; Internal Medicine; Student in an Organized Health Care Education/Training Program; ADMIT Internal Medicine
DX: J44.1 Chronic obstructive pulmonary disease with (acute) exacerbation (principal); J40 Bronchitis, not specified as acute or chronic; J96.21 Acute and chronic respiratory failure with hypoxia; G47.33 Obstructive sleep apnea (adult) (pediatric); R00.0 Tachycardia, unspecified; E11.65 Type 2 diabetes mellitus with hyperglycemia; T38.0X5A Adverse effect of glucocorticoids and synthetic analogues, initial encounter; E78.5 Hyperlipidemia, unspecified; I10 Essential (primary) hypertension; G25.81 Restless legs syndrome; B37.2 Candidiasis of skin and nail; G89.29 Other chronic pain; G43.909 Migraine, unspecified, not intractable, without status migrainosus; E11.42 Type 2 diabetes mellitus with diabetic polyneuropathy; F17.290 Nicotine dependence, other tobacco product, uncomplicated; Z66 Do not resuscitate; Z86.711 Personal history of pulmonary embolism; Z79.84 Long term (current) use of oral hypoglycemic drugs; Z79.899 Other long term (current) drug therapy; Z88.0 Allergy status to penicillin; Z88.1 Allergy status to other antibiotic agents; Z88.2 Allergy status to sulfonamides; Z88.5 Allergy status to narcotic agent; Z88.8 Allergy status to other drugs, medicaments and biological substances; Z91.048 Other nonmedicinal substance allergy status; Z99.81 Dependence on supplemental oxygen
CPT/HCPCS: 0202U; 36415; 71260; 80048; 80053; 82947; 83605; 83735; 83880; 84100; 84145; 84443; 84484; 85025; 86140; 87040; 93005; 93010; 94640; 94660; 94762; 96365-59; 96368; 96375-59; 99285-25; A9270; G0378; J0456; J0696; J1815; J1885; J2919; J7030; J7050; Q9967

== ENCOUNTER 2025-05-07 14:01 | Emergency (ER) | payer OTHER ==
[~2025-05-07] VITALS: Ht 160 cm; Wt 127.5 kg
[~2025-05-07 14:01] MED LIST changes: +AZIT500 PO; +CEFU500T30 PO; +DILT120 PO; +Mucinex600 MG PO; +Prednisone10 MG PO
[2025-05-07 16:28] VITALS: BP 130/69
[2025-05-07] MEDS ORDERED: Ipratropium/Albuterol SulF 2.5-0.5MG/3 ML Amp INH ONE (17:00)
[2025-05-07] MEDS ORDERED: CEPH500 PO (17:01)
== END 2025-05-07 18:19 | disposition home or self-care (01) ==
LOC: ER 14:01
DX: N76.2 Acute vulvitis (principal); Z79.84 Long term (current) use of oral hypoglycemic drugs; Z79.01 Long term (current) use of anticoagulants; Z79.52 Long term (current) use of systemic steroids; Z79.899 Other long term (current) drug therapy
CPT/HCPCS: A9270

== ENCOUNTER 2025-05-16 14:38 | Emergency (ER) | payer OTHER ==
[~2025-05-16] VITALS: Ht 160 cm; Wt 130.2 kg
[2025-05-16] MEDS ORDERED: CLIN150 PO (14:58)
[2025-05-16 15:00] VITALS: BP 137/73
== END 2025-05-16 15:41 | disposition home or self-care (01) ==
LOC: ER 14:38
DX: L03.311 Cellulitis of abdominal wall (principal); J44.9 Chronic obstructive pulmonary disease, unspecified; E11.9 Type 2 diabetes mellitus without complications; I10 Essential (primary) hypertension; E78.5 Hyperlipidemia, unspecified; G47.30 Sleep apnea, unspecified; F17.290 Nicotine dependence, other tobacco product, uncomplicated; Z99.81 Dependence on supplemental oxygen; Z79.01 Long term (current) use of anticoagulants; Z79.84 Long term (current) use of oral hypoglycemic drugs; Z79.899 Other long term (current) drug therapy; Z88.0 Allergy status to penicillin; Z88.2 Allergy status to sulfonamides; Z88.1 Allergy status to other antibiotic agents; Z88.5 Allergy status to narcotic agent; Z91.048 Other nonmedicinal substance allergy status
CPT/HCPCS: 99283; A9270

== ENCOUNTER 2025-06-05 18:04 | Observation (INO) | payer OTHER ==
[~2025-06-05] VITALS: Ht 160 cm; Wt 123.7 kg
[2025-06-05 20:17] LABS: Alanine Aminotransfer (ALT/SGP 25.0 U/L (12-78); Albumin, Blood 2.8 g/dL (3.4-5.0); Albumin/Globulin Ratio 0.8 (0.8-1.8); Anion Gap 8.0 mmol/L (3-11); Aspartate Aminotrans (AST/SGOT 72.0 U/L (12-37); Bilirubin, Total 0.4 mg/dL (0.1-1.0); Blood Urea Nitrogen 8.0 mg/dL (8-24); CO2, Blood 21.0 mmol/L (21-32); Calcium, Blood 8.3 mg/dL (8.5-10.1); Chloride, Blood 115.0 mmol/L (98-108); Creatinine, Blood 0.53 mg/dL (0.40-1.00); Globulin, Blood 3.4 g/dL (2.2-4.0); Glucose, Blood 178.0 mg/dL (70-99); Potassium, Blood 4.7 mmol/L (3.5-5.5); Sodium, Blood 139.0 mmol/L (136-145); Total Protein, Blood 6.2 g/dL (6.4-8.2)
[2025-06-05 22:45] LABS: BASOPHILS ABSOLUTE AUTO 0.06 K/mm3 (0.00-0.23); BASOPHILS PERCENT AUTO 1 % (0-2); EOSINOPHILS ABSOLUTE AUTO 0.00 K/mm3 (0.00-0.68); EOSINOPHILS PERCENT AUTO 0 % (0-6); Hematocrit 44.6 % (33.0-51.0); Hemoglobin 15.1 g/dL (11.5-16.0); IMMATURE GRAN ABSOLUTE AUTO 0.20 K/mm3 (0.00-0.10); IMMATURE GRAN PERCENT AUTO 2 % (0-1); LYMPHOCYTES ABSOLUTE AUTO 0.88 K/mm3 (0.84-5.20); LYMPHOCYTES PERCENT AUTO 10 % (21-46); MONOCYTES ABSOLUTE AUTO 0.08 K/mm3 (0.16-1.47); MONOCYTES PERCENT AUTO 1 % (4-13); Mean Corpuscular HGB Conc 33.9 g/dL (31.5-36.5); Mean Corpuscular Volume 95 fL (80-100); NEUTROPHILS ABSOLUTE AUTO 7.63 K/mm3 (1.96-9.15); NEUTROPHILS PERCENT AUTO 86 % (41-73); NRBC ABSOLUTE 0.00 K/mm3 (0.00-0.02); NRBC Auto 0.0 /100 WBC (0.0-0.2); Platelet Count 270 K/mm3 (150-400); RDW Coefficient Variation 14.4 % (11.7-14.2); RDW Standard Deviation 49.6 fL (35.1-46.3)
[2025-06-05 23:00] VITALS: BP 165/111
[2025-06-05 23:04] LABS: pH Blood Venous 7.39 (7.34-7.37)
[2025-06-05 23:30] VITALS: BP 160/111
[2025-06-06] VITALS (10 sets, daily range): BP systolic 139–206; BP diastolic 70–128
[2025-06-06 00:18] LABS: Influenza A, PCR NEGATIVE (NEGATIVE); Influenza B, PCR NEGATIVE (NEGATIVE); Resp Syncytial Virus, PCR NEGATIVE (NEGATIVE); SARS-Cov-2 (COVID-19) PCR, MMC NEGATIVE (NEGATIVE)
[2025-06-06] MEDS ORDERED: Ipratropium/Albuterol SulF 2.5-0.5MG/3 ML Amp INH ONE (01:55)
[2025-06-06] MEDS ORDERED: Ipratropium/Albuterol SulF 2.5-0.5MG/3 ML Amp INH SCH (02:30)
[2025-06-06 04:07] LABS: BASOPHILS ABSOLUTE AUTO 0.04 K/mm3 (0.00-0.23); BASOPHILS PERCENT AUTO 1 % (0-2); EOSINOPHILS ABSOLUTE AUTO 0.03 K/mm3 (0.00-0.68); EOSINOPHILS PERCENT AUTO 0 % (0-6); Hematocrit 43.1 % (33.0-51.0); Hemoglobin 14.4 g/dL (11.5-16.0); IMMATURE GRAN ABSOLUTE AUTO 0.11 K/mm3 (0.00-0.10); IMMATURE GRAN PERCENT AUTO 1 % (0-1); LYMPHOCYTES ABSOLUTE AUTO 1.03 K/mm3 (0.84-5.20); LYMPHOCYTES PERCENT AUTO 12 % (21-46); MONOCYTES ABSOLUTE AUTO 0.10 K/mm3 (0.16-1.47); MONOCYTES PERCENT AUTO 1 % (4-13); Mean Corpuscular HGB Conc 33.4 g/dL (31.5-36.5); Mean Corpuscular Volume 95 fL (80-100); NEUTROPHILS ABSOLUTE AUTO 7.53 K/mm3 (1.96-9.15); NEUTROPHILS PERCENT AUTO 85 % (41-73); NRBC ABSOLUTE 0.00 K/mm3 (0.00-0.02); NRBC Auto 0.0 /100 WBC (0.0-0.2); RDW Coefficient Variation 14.3 % (11.7-14.2); RDW Standard Deviation 50.0 fL (35.1-46.3)
[2025-06-06 04:09] LABS: Source, Urine Clean Catch
[2025-06-06 04:09] LABS: Alanine Aminotransfer (ALT/SGP 26.0 U/L (12-78); Albumin, Blood 3.1 g/dL (3.4-5.0); Albumin/Globulin Ratio 0.8 (0.8-1.8); Anion Gap 11.0 mmol/L (3-11); Aspartate Aminotrans (AST/SGOT 40.0 U/L (12-37); Bilirubin, Total 0.3 mg/dL (0.1-1.0); Blood Urea Nitrogen 13.0 mg/dL (8-24); CO2, Blood 22.0 mmol/L (21-32); Calcium, Blood 9.0 mg/dL (8.5-10.1); Chloride, Blood 109.0 mmol/L (98-108); Creatinine, Blood 0.63 mg/dL (0.40-1.00); Globulin, Blood 3.9 g/dL (2.2-4.0); Glucose, Blood 293.0 mg/dL (70-99); Magnesium, Blood 1.9 mg/dL (1.6-2.4); Potassium, Blood 4.0 mmol/L (3.5-5.5); Sodium, Blood 138.0 mmol/L (136-145); Total Protein, Blood 7.0 g/dL (6.4-8.2)
[2025-06-06 04:20] LABS: Bilirubin, Urine Neg (Neg); Glucose Qualitative, Urine 2+ (Neg); Ketones, Urine 4+ (Neg); Leukocyte Esterase, Urine Neg (Neg); Protein, Urine 2+ (Neg); Specific Gravity, Urine 1.005 (1.003-1.022); Urobilinogen, Urine NORM (Normal)
[2025-06-06 04:31] LABS: Color, Urine Yellow (P-Yellow); Red Blood Cells, Urine Not Seen /hpf (0-2); White Blood Cells, Urine Not Seen /hpf (0-5)
[2025-06-06] MEDS ORDERED: Miconazole Nitrate 2% 85 GM PWD TOP PRN (04:50)
[2025-06-06] MEDS ORDERED: Insulin Regular 100 UNIT/ML 10ML Vial SC SCH (07:30)
[2025-06-06] MEDS ORDERED: Vitamin B Complex 1 EA Softgel PO SCH (09:00)
[2025-06-06] MEDS ORDERED: Cholecalciferol 1000 Unit Tablet (=25MCG) PO SCH (09:00)
[2025-06-06] MEDS ORDERED: Lactobacil 2-S.Thermo-Bifido 1 1 Cap PO SCH (09:00)
[2025-06-06] MEDS ORDERED: Insulin Human Lispro 100 Units/ML 3ML Syringe SC SCH ×2 (12:00→12:30)
[2025-06-06 14:42] LABS: Campylobacter Sp Not Detected (NOT DETECT); E. Coli O157 Not Detected (NOT DETECT); Enteroaggregative E. coli-EAEC Not Detected (NOT DETECT); Enteropathogenic E. coli-EPEC Not Detected (NOT DETECT); Enterotoxigenic E. coli-ETEC Not Detected (NOT DETECT); Salmonella Sp Not Detected (NOT DETECT); Shiga Toxin-prod E. coli-STEC Not Detected (NOT DETECT); Shigella/Enteroin E. coli-EIEC Not Detected (NOT DETECT); Vibrio Sp Not Detected (NOT DETECT)
--- NOTE | 2025-06-06 15:35 | NUR ---
PT HYPERTENSIVE AND TACHYCARDIC, PT ALSO C/O MIGRAINE. GIVEN TYLENOL WITHOUT RELIEF. DR. JAIMES AT BEDSIDE. PER MD, SHE WILL WORK ON HOME MEDICATIONS AND MEDICATION FOR MIGRAINE
[2025-06-06] MEDS ORDERED: Insulin Glargine 100 Unit/ML 3 ML SYR SC SCH (18:00)
[2025-06-06] MEDS ORDERED: LURASIDONE 60 MG TABLET PO SCH (18:00)
[2025-06-07 04:26] VITALS: BP 165/86
[2025-06-07 05:11] LABS: BASOPHILS ABSOLUTE AUTO 0.03 K/mm3 (0.00-0.23); BASOPHILS PERCENT AUTO 0 % (0-2); EOSINOPHILS ABSOLUTE AUTO 0.00 K/mm3 (0.00-0.68); EOSINOPHILS PERCENT AUTO 0 % (0-6); Hematocrit 42.0 % (33.0-51.0); Hemoglobin 13.9 g/dL (11.5-16.0); IMMATURE GRAN ABSOLUTE AUTO 0.24 K/mm3 (0.00-0.10); IMMATURE GRAN PERCENT AUTO 1 % (0-1); LYMPHOCYTES ABSOLUTE AUTO 1.24 K/mm3 (0.84-5.20); LYMPHOCYTES PERCENT AUTO 7 % (21-46); MONOCYTES ABSOLUTE AUTO 0.48 K/mm3 (0.16-1.47); MONOCYTES PERCENT AUTO 3 % (4-13); Mean Corpuscular HGB Conc 33.1 g/dL (31.5-36.5); Mean Corpuscular Volume 98 fL (80-100); NEUTROPHILS ABSOLUTE AUTO 16.04 K/mm3 (1.96-9.15); NEUTROPHILS PERCENT AUTO 89 % (41-73); NRBC ABSOLUTE 0.00 K/mm3 (0.00-0.02); NRBC Auto 0.0 /100 WBC (0.0-0.2); Platelet Count 281 K/mm3 (150-400); RDW Coefficient Variation 14.9 % (11.7-14.2); RDW Standard Deviation 53.6 fL (35.1-46.3)
[2025-06-07 05:44] LABS: Alanine Aminotransfer (ALT/SGP 23.0 U/L (12-78); Albumin, Blood 3.2 g/dL (3.4-5.0); Albumin/Globulin Ratio 0.9 (0.8-1.8); Anion Gap 12.0 mmol/L (3-11); Aspartate Aminotrans (AST/SGOT 23.0 U/L (12-37); Bilirubin, Total 0.3 mg/dL (0.1-1.0); Blood Urea Nitrogen 19.0 mg/dL (8-24); CO2, Blood 21.0 mmol/L (21-32); Calcium, Blood 8.9 mg/dL (8.5-10.1); Chloride, Blood 106.0 mmol/L (98-108); Creatinine, Blood 0.71 mg/dL (0.40-1.00); Globulin, Blood 3.6 g/dL (2.2-4.0); Glucose, Blood 425.0 mg/dL (70-99); Potassium, Blood 4.0 mmol/L (3.5-5.5); Sodium, Blood 135.0 mmol/L (136-145); Total Protein, Blood 6.8 g/dL (6.4-8.2)
[2025-06-07 07:31] VITALS: BP 155/97
[2025-06-07] MEDS ORDERED: VISBIOME 112.51 EACH PO (12:03)
[2025-06-07] MEDS ORDERED: AZIT500 PO (12:04)
[2025-06-07] MEDS ORDERED: PRED20 PO (12:07)
[2025-06-07] MEDS ORDERED: IMITREX50 M1 PO (12:25)
--- NOTE | 2025-06-07 14:33 | NUR ---
PT DISCHARGED HOME WITH CAREGIVER. AAYUSH BROUGHT NEEDED O2 SUPPLY TO PT ROOM FOR SAFE DISCHARGE. MEDICATIONS FAXED TO [facility], DISCHARGE INSTRUCTIONS DISCUSSED WITH PT. EMPHASIZED IMPORTANCE OF CHECKING CBG MORE OFTEN DUE TO HER BLOOD GLUCOSE BEING HIGHER THAN USUAL. PT VERBALIZED UNDERSTANDING. PT TO FOLLOW UP WITH PCP IN THE NEXT 3 DAYS. PT DISCHARGED ON 4L NC/FACEMASK, THIS IS HER BASELINE.
--- NOTE | 2025-06-07 15:17 | NUR ---
MEET AND GREET WITH PT. UPON ENTERING THE ROOM, PT IS SITTING AT EDGE OF BED. THO IS A/O X4. USING OXYGEN VIA MASK. DENIES CP/SOB AT THIS TIME. PT EXPRESSES EXCITEMENT TO GO HOME TODAY AFTER THIS LAST BAG OF IV ABX. REVIEW OF IMPORTANCE AND BARRIERS TO MEDICATION COMPLIANCE RE: DM AND COPD.
== END 2025-06-07 14:18 | disposition home or self-care (01) ==
LOC: ER 18:04 → ERHOLD 18:05 → MEDS 06-06 12:47 → ENPENDDIS 06-07 13:02 → MEDS 06-07 14:18
PROVIDERS: Emergency Medicine; Student in an Organized Health Care Education/Training Program; ADMIT Student in an Organized Health Care Education/Training Program
DX: J96.21 Acute and chronic respiratory failure with hypoxia (principal); J44.1 Chronic obstructive pulmonary disease with (acute) exacerbation; E87.21 Acute metabolic acidosis; R19.7 Diarrhea, unspecified; R30.0 Dysuria; R10.13 Epigastric pain; E11.9 Type 2 diabetes mellitus without complications; I10 Essential (primary) hypertension; E78.5 Hyperlipidemia, unspecified; G47.33 Obstructive sleep apnea (adult) (pediatric); G25.81 Restless legs syndrome; F41.8 Other specified anxiety disorders; Z66 Do not resuscitate; Z86.711 Personal history of pulmonary embolism; Z79.01 Long term (current) use of anticoagulants; Z79.899 Other long term (current) drug therapy; Z99.81 Dependence on supplemental oxygen; Z87.891 Personal history of nicotine dependence; Z79.84 Long term (current) use of oral hypoglycemic drugs; Z88.1 Allergy status to other antibiotic agents; Z88.0 Allergy status to penicillin; Z88.8 Allergy status to other drugs, medicaments and biological substances; Z91.048 Other nonmedicinal substance allergy status; Z88.5 Allergy status to narcotic agent
CPT/HCPCS: 36415; 71046; 71275; 80053; 81001; 82803; 82947; 83605; 83735; 83880; 84145; 84484; 85025; 87507; 87637; 93005; 93010; 94640; 94762; 96374-59; 96375-59; 96376; 96376-59; 99285-25; A6590; A9270; G0378; J0456; J1815; J2919; J7050; J7120; Q9967

== ENCOUNTER → 2025-06-14 | Outpatient (CLI) | payer OTHER ==
[~2025-06-14] MED LIST changes: +IMITREX50 M1 PO
== END ==
LOC: LAB SHORT 16:19 → LAB 16:19
DX: B37.31 Acute candidiasis of vulva and vagina (principal); R35.0 Frequency of micturition
CPT/HCPCS: 87086

== ENCOUNTER 2025-08-11 06:41 | Inpatient (IN) | payer OTHER ==
[~2025-08-11] VITALS: Ht 160 cm; Wt 127.5 kg
[2025-08-11] MEDS ORDERED: Albuterol 2.5 MG/3 ML VIAL INH SCH (07:05)
[2025-08-11 07:10] LABS: BASOPHILS ABSOLUTE AUTO 0.10 K/mm3 (0.00-0.23); BASOPHILS PERCENT AUTO 1 % (0-2); EOSINOPHILS ABSOLUTE AUTO 0.34 K/mm3 (0.00-0.68); EOSINOPHILS PERCENT AUTO 3 % (0-6); Hematocrit 47.1 % (33.0-51.0); Hemoglobin 15.0 g/dL (11.5-16.0); IMMATURE GRAN ABSOLUTE AUTO 0.11 K/mm3 (0.00-0.10); IMMATURE GRAN PERCENT AUTO 1 % (0-1); LYMPHOCYTES ABSOLUTE AUTO 3.30 K/mm3 (0.84-5.20); LYMPHOCYTES PERCENT AUTO 31 % (21-46); MONOCYTES ABSOLUTE AUTO 0.90 K/mm3 (0.16-1.47); MONOCYTES PERCENT AUTO 9 % (4-13); Mean Corpuscular HGB Conc 31.8 g/dL (31.5-36.5); Mean Corpuscular Volume 103 fL (80-100); NEUTROPHILS ABSOLUTE AUTO 5.75 K/mm3 (1.96-9.15); NEUTROPHILS PERCENT AUTO 55 % (41-73); NRBC ABSOLUTE 0.00 K/mm3 (0.00-0.02); NRBC Auto 0.0 /100 WBC (0.0-0.2); Platelet Count 241 K/mm3 (150-400); RDW Coefficient Variation 13.9 % (11.7-14.2); RDW Standard Deviation 52.9 fL (35.1-46.3)
[2025-08-11 07:21] LABS: Alanine Aminotransfer (ALT/SGP 28.0 U/L (12-78); Albumin, Blood 3.1 g/dL (3.4-5.0); Albumin/Globulin Ratio 0.8 (0.8-1.8); Anion Gap 11.0 mmol/L (3-11); Aspartate Aminotrans (AST/SGOT 73.0 U/L (12-37); Bilirubin, Total 0.3 mg/dL (0.1-1.0); Blood Urea Nitrogen 15.0 mg/dL (8-24); CO2, Blood 24.0 mmol/L (21-32); Calcium, Blood 9.5 mg/dL (8.5-10.1); Chloride, Blood 109.0 mmol/L (98-108); Creatinine, Blood 0.68 mg/dL (0.40-1.00); Globulin, Blood 4.0 g/dL (2.2-4.0); Glucose, Blood 197.0 mg/dL (70-99); Potassium, Blood 4.2 mmol/L (3.5-5.5); Sodium, Blood 140.0 mmol/L (136-145); Total Protein, Blood 7.1 g/dL (6.4-8.2)
[2025-08-11] MEDS ORDERED: CefTRIAXone Sodium 1,000 MG in NS 100 ML IV ONE (08:00)
[2025-08-11] MEDS ORDERED: FLU VACC TS2025-26(6MOS UP)/PF 45 MCG/0.5 ML SYRINGE IM SCH (12:20)
[2025-08-11] MEDS ORDERED: Polyethylene Glycol 3350 17 gm PO PRN (12:20)
[2025-08-11] MEDS ORDERED: Furosemide 10 MG / ML 2ML Vial IV SCH (13:00)
[2025-08-11 13:39] VITALS: BP 139/62
--- NOTE | 2025-08-11 13:45 | NUR ---
PT TRANSFERED TO ROOM 325 FROM ER.
[2025-08-11] MEDS ORDERED: Albuterol 2.5 MG/3 ML VIAL INH PRN (15:25)
[2025-08-11] MEDS ORDERED: Ipratropium/Albuterol SulF 2.5-0.5MG/3 ML Amp INH SCH (15:30)
[2025-08-11] MEDS ORDERED: PREG75 PO (16:09)
[2025-08-11] MEDS ORDERED: ERGO400 PO (16:13)
[2025-08-11] MEDS ORDERED: Insulin Human Lispro 100 Units/ML 3ML Syringe SC SCH ×2 (16:30→21:00)
--- NOTE | 2025-08-11 16:40 | NUR ---
REPORT CALLED TO ALFRED FARRELL AT [facility]. AWAITING TRANSPORT TIME.
--- NOTE | 2025-08-11 16:47 | NUR ---
ATTEMPT TO CALL PHYSICAN REGARDING BLOOD SUGAR OF 395. UNABLE TO REACH AT THIS TIME.
[2025-08-11] MEDS ORDERED: Insulin Glargine 100 Unit/ML 3 ML SYR SC SCH (18:09)
--- NOTE | 2025-08-11 18:23 | NUR ---
SHIFT SUMMARY PT IS A/OX4. SBA. ON 6L VIA MASK, PER PT REQUEST, ON CONT PULSE OX. PT REPORTS 4L AT BASELINE. RECIEVING IV STEROIDS PER NOV. BLOOD GLUCOSE 395 THIS EVENING, PHYSCIAN NOTIFIED. PT IS PLEASANT AND COOPERATIVE WITH CARE AND CALLS APPROPRIATELY USING THE CALL LIGHT.
--- NOTE | 2025-08-11 20:12 | NUR ---
PT HS CBG 362. HOSPITALIST NOTIFIED AND HUMALOG COVERAGE CHANGED FROM AC TO AC/HS MEDIUM CS.
[2025-08-11 20:35] VITALS: BP 146/73
[2025-08-11] MEDS ORDERED: Miconazole Nitrate 2% 85 GM PWD TOP SCH (21:00)
[2025-08-11] MEDS ORDERED: Docusate Sodium/Senna 1 Tab PO SCH (21:00)
[2025-08-12 00:45] VITALS: BP 145/84
--- NOTE | 2025-08-12 01:13 | NUR ---
NOTIFIED HOSPITALIST THAT PT MED REC WAS RECONCILED, BUT THERE WAS QUESTIONS ABOUT THE ACCURACY OF MEDICATION DOSAGES. SOME MEDICATIONS WERE ORDERED, BUT WILL PASS ALONG TO DAY RN CONCERNS AND ABILITY TO VERIFY ALL MEDICATOINS AND DOSAGES.
[2025-08-12] MEDS ORDERED: Insulin Human Lispro 100 Units/ML 3ML Syringe SC ONE ×2 (02:45→11:55)
--- NOTE | 2025-08-12 02:46 | NUR ---
PT BLOOD GLUCOSE 396 UPON SPOT CHECK. HOSPITALIST NOTIFIED AND GAVE ORDERS FOR 5 UNITS PER MED CS FOR COVERAGE FOR BLOOD GLUCOSE >350.
[2025-08-12 04:29] LABS: pH Blood Venous 7.39 (7.34-7.37)
[2025-08-12 04:34] VITALS: BP 175/96
[2025-08-12 04:37] VITALS: BP 150/84
[2025-08-12 04:40] LABS: Hematocrit 43.8 % (33.0-51.0); Hemoglobin 14.3 g/dL (11.5-16.0); Mean Corpuscular HGB Conc 32.6 g/dL (31.5-36.5); NRBC ABSOLUTE 0.00 K/mm3 (0.00-0.02); NRBC Auto 0.0 /100 WBC (0.0-0.2); Platelet Count 267 K/mm3 (150-400); RDW Coefficient Variation 13.2 % (11.7-14.2); RDW Standard Deviation 47.1 fL (35.1-46.3)
[2025-08-12 05:07] LABS: Albumin, Blood 3.1 g/dL (3.4-5.0); Anion Gap 9 mmol/L (3-11); Blood Urea Nitrogen 34 mg/dL (8-24); CO2, Blood 25 mmol/L (21-32); Calcium, Blood 9.4 mg/dL (8.5-10.1); Chloride, Blood 105 mmol/L (98-108); Creatinine, Blood 0.74 mg/dL (0.40-1.00); Glucose, Blood 375 mg/dL (70-99); Magnesium, Blood 1.7 mg/dL (1.6-2.4); Phosphorus, Blood 3.2 mg/dL (2.5-4.9); Potassium, Blood 4.1 mmol/L (3.5-5.5); Sodium, Blood 135 mmol/L (136-145); Thyroid Stimulating Hormone 0.456 uIU/mL (0.360-4.800)
[2025-08-12 05:19] LABS: Mean Corpuscular Volume 98 fL (80-100)
--- NOTE | 2025-08-12 05:21 | NUR ---
SHIFT SUMMARY NOC PT A/O X 4. PLEASANT AND COOPERATIVE WITH CARE. VSS. HS CBG 362, HOSPITALIST NOTIFIED THAT PT DID NOT HAVE HS HUMALOG COVERAGE AND COVERAGE ADJUSTED TO AC/HS AND PT GIVEN 5 UNITS PER SLIDING SCALE. SPOT CHECK @ 0230 SHOWED CBG 396 WITH HOSPITALIST ORDERING AN ADDITIONAL 5 UNITS SHORT ACTING INSULING. PT REMAINS ON 6L/OXYMASK AND DESATS INTO MID 80'S WHEN REMOVED. PT HAD C/O OF WHEEZE BUT LUNG SOUNDS CLEAR T/O. PT ESCOBEDO/BACK PAIN BEING MANAGED PER EMAR. SOME OF PT HOME MEDICATIONS REORDERED, BUT PT TAKES MANY DEPRESSION/ANXIETY/NEUROPATHY MEDICATIONS AND WILL NEED TO BE VERIFIED BY PT PHARMACY. PT CURRENTLY RESTING WITH BED IN LOWEST POSITION, AND CALL LIGHT WITHIN REACH.
[2025-08-12] MEDS ORDERED: Insulin Glargine-Yfgn 100 Unit/mL 3 ML SYR SC ONE (05:50)
--- NOTE | 2025-08-12 05:56 | NUR ---
HOSPITALIST NOTIFIED THAT PT SERUM BLOOD GLUCOSE 375 THIS AM AFTER RECEIVING 5 UNITS SHORT ACTING @ 0320 FOR 396.ORDERS GIVEN FOR 20 UNITS LONG ACTING LANTUS NOW, AND TO MODIFY ORIGANAL LANTUS ORDER FOR BID 10 UNITS AND TO BEGIN @ 1800 TODAY.
[2025-08-12 07:37] VITALS: BP 151/83
--- NOTE | 2025-08-12 08:15 | NUR ---
DR SY NOTIFIED OF BLOOD SUGAR OF 387. NO NEW ORDERS AT THIS TIME.
[2025-08-12] MEDS ORDERED: Cholecalciferol 1000 Unit Tablet (=25MCG) PO SCH (09:00)
--- NOTE | 2025-08-12 11:55 | NUR ---
DR SY NOTIFIED OF BLOOD SUGAR OF 427. VERBAL ORDER RECIEVED FOR ADDITIONAL 5 UNITS HUMALOG GIVEN ALONG WITH 10 UNITS PER SLIDING SCALE.
[2025-08-12 15:19] VITALS: BP 157/86
--- NOTE | 2025-08-12 16:39 | NUR ---
SHIFT SUMMARY PT IS A/OX4. SBA. NO ACUTE EVENTS THROUGHOUT THIS SHIFT. PT REMAINS ON 6L VIA OXY MASK, 4L AT BASELINE, ON CONT PULSE. HOME CPAP IN ROOM FOR USE WHILE SLEEPING. BLOOD GLUCOSE REMAINS ELEVATED, MEDICATED PER NOV.
[2025-08-12] MEDS ORDERED: Insulin Glargine 100 Unit/ML 3 ML SYR SC SCH (18:00)
[2025-08-12 20:17] VITALS: BP 150/82
[2025-08-13 02:31] VITALS: BP 148/85
--- NOTE | 2025-08-13 04:41 | NUR ---
SHIFT SUMMARY NOC PT A/O X 4. PLEASANT AND COOPERATIVE WITH CARE. VSS. HS CBG 349 WITH 5 UNITS SHORT ACTING FOR COVERAGE, SPOT CHECK @ 100 SHOWED CBG 293. PT ESCOBEDO/BACK PAIN BEING MANAGED PER EMAR. PT ON 5L/OXYMASK AND USING CPAP PRN WHEN SLEEPING SPO2 >92%, BUT DESATS QUICKLY WHEN TAKING O2 OFF. PT IS ANXIOUS TO GET OUT OF HOSPITAL. PT CURRENTLY RESTING WITH BED IN LOWEST POSITION, AND CALL LIGHT WITHIN REACH.
[2025-08-13 07:59] VITALS: BP 154/83
[2025-08-13 15:49] VITALS: BP 156/80
[2025-08-13] MEDS ORDERED: MetFORMIN HCl 500 mg PO SCH (17:00)
[2025-08-13] MEDS ORDERED: Misc. Tablet PO SCH ×2 (18:00→18:40)
--- NOTE | 2025-08-13 18:05 | NUR ---
SHIFT SUMMARY PT AXO4, COOPERATIVE, ABLE TO MAKE NEEDS KNOWN. PT IS IND/SBA IN ROOM TO USE COMMODE. ON APPROX 5L O2 CURRENLTLY. SUPPOSED TO DC TOMORROW BACK HOME. TOLERATING MEDICATIONS. EDUCATED PT HOW TO USE INSULIN [id number] THIS SHIFT FOR AT HOME ADMINISTRATION. BED IN LOWEST POSITION, CALL LIGHT WITHIN REACH.
--- NOTE | 2025-08-13 19:15 | NUR ---
RECEIVED BEDSIDE REPORT FROM BUD DILLARD. NO NEEDS AT THIS TIME. CALL LT IN REACH.
[2025-08-13 20:10] VITALS: BP 157/83
--- NOTE | 2025-08-13 21:57 | NUR ---
PT RESTING QUIETLY. CPAP IN PLACE. CALL LT IN REACH.
--- NOTE | 2025-08-13 23:01 | NUR ---
TRANSFER OF CARE AND REPORT GIVEN TO ELTON DIA.
[2025-08-14 03:36] VITALS: BP 142/83
--- NOTE | 2025-08-14 04:10 | NUR ---
SHIFT SUMMARY: PT IS AOX4 AND IND TO BSC. PT HAS BEEN AWAKE ALL NIGHT AND ON 4L O2 AND AN OXIMIZER MASK. NO IV ACCESS ORDER OBTAINED DUE TO PTS IV INFLITRATING AND NO IV MEDS. NO ACUTE CHANGES THIS SHIFT.
[2025-08-14 07:44] VITALS: BP 155/84
[2025-08-14] MEDS ORDERED: LURASIDONE HCL80 MG PO (10:42)
[2025-08-14] MEDS ORDERED: Atarax10 MG PO (10:42)
[2025-08-14] MEDS ORDERED: METPRE8 PO (12:18)
[2025-08-14] MEDS ORDERED: MUCINEX600 MG PO (12:19)
[2025-08-14] MEDS ORDERED: MICONAZOLE NITR85 GM TOP (12:21)
[2025-08-14] MEDS ORDERED: Nicoderm Cq1 EAC1 TOP (12:22)
[2025-08-14] MEDS ORDERED: PANT20 PO (12:22)
--- NOTE | 2025-08-14 15:29 | NUR ---
DISCHARGE 1430 PT AOX4, COOPERATIVE, ABLE TO MAKE NEEDS KNOWN. PT IS SBA TO USE BATHROOM, IND TO USE COMMODE. ON 4L O2 CURRENTLY WITH IS BASELINE. TOLERATING MEDICATIONS. PT IS TALKATIVE. TRANSFERRED TO WITHOUT ISSUE. MARY ARGUETA TOOK PT DOWN TO PT ENTRANCE TO TRANSPORT HOME. IV WAS DC'D LAST NIGHT BY RN. PT TOOK BELONGINGS.
== END 2025-08-14 15:19 | disposition home or self-care (01) | DRG 189 ==
LOC: ER 06:41 → MEDS 12:16 → ENPENDDIS 08-14 11:40 → MEDS 08-14 15:19
PROVIDERS: Student in an Organized Health Care Education/Training Program; ADMIT Internal Medicine
PROC: 5A09357 Assistance with Respiratory Ventilation, Less than 24 Consecutive Hours, Continuous Positive Airway Pressure (ICD-10-PCS; principal; 2025-08-11)
DX: J96.21 Acute and chronic respiratory failure with hypoxia (principal); J44.1 Chronic obstructive pulmonary disease with (acute) exacerbation; E66.2 Morbid (severe) obesity with alveolar hypoventilation; Z68.43 Body mass index [BMI] 50.0-59.9, adult; F41.8 Other specified anxiety disorders; J96.22 Acute and chronic respiratory failure with hypercapnia; I10 Essential (primary) hypertension; Z66 Do not resuscitate; F17.210 Nicotine dependence, cigarettes, uncomplicated; G25.81 Restless legs syndrome; E78.5 Hyperlipidemia, unspecified; F41.0 Panic disorder [episodic paroxysmal anxiety]; E11.65 Type 2 diabetes mellitus with hyperglycemia; T38.0X5A Adverse effect of glucocorticoids and synthetic analogues, initial encounter; Z60.2 Problems related to living alone; Z86.711 Personal history of pulmonary embolism; Z79.01 Long term (current) use of anticoagulants; Z88.0 Allergy status to penicillin; Z88.1 Allergy status to other antibiotic agents; Z88.5 Allergy status to narcotic agent; Z88.8 Allergy status to other drugs, medicaments and biological substances; Z79.84 Long term (current) use of oral hypoglycemic drugs; Z79.52 Long term (current) use of systemic steroids; Z99.81 Dependence on supplemental oxygen
CPT/HCPCS: 36415; 71046; 80053; 80069; 82803; 82947; 83036; 83735; 83880; 84145; 84443; 85025; 85027; 92610; 93306; 93971; 94640; 94664; 94760; 94762; 96365; 96368; 99285-25; A9270; J0456; J0696; J1815; J1938; J2919; J7050; J7509

== ENCOUNTER 2025-08-20 13:07 | Emergency (ER) | payer OTHER ==
[~2025-08-20] VITALS: Ht 160 cm; Wt 125.6 kg
[~2025-08-20 13:07] MED LIST changes: +Atarax10 MG PO; +ERGO400 PO; +LURASIDONE HCL80 MG PO; +METPRE8 PO; +MICONAZOLE NITR85 GM TOP; +MUCINEX600 MG PO; +Nicoderm Cq1 EAC1 TOP; +PANT20 PO; +PREG75 PO
[2025-08-20 13:54] LABS: BASOPHILS ABSOLUTE AUTO 0.08 K/mm3 (0.00-0.23); BASOPHILS PERCENT AUTO 1 % (0-2); EOSINOPHILS ABSOLUTE AUTO 0.18 K/mm3 (0.00-0.68); EOSINOPHILS PERCENT AUTO 2 % (0-6); Hematocrit 43.3 % (33.0-51.0); Hemoglobin 14.5 g/dL (11.5-16.0); IMMATURE GRAN ABSOLUTE AUTO 0.11 K/mm3 (0.00-0.10); IMMATURE GRAN PERCENT AUTO 1 % (0-1); LYMPHOCYTES ABSOLUTE AUTO 2.57 K/mm3 (0.84-5.20); LYMPHOCYTES PERCENT AUTO 24 % (21-46); MONOCYTES ABSOLUTE AUTO 0.78 K/mm3 (0.16-1.47); MONOCYTES PERCENT AUTO 7 % (4-13); Mean Corpuscular HGB Conc 33.5 g/dL (31.5-36.5); Mean Corpuscular Volume 96 fL (80-100); NEUTROPHILS ABSOLUTE AUTO 7.11 K/mm3 (1.96-9.15); NEUTROPHILS PERCENT AUTO 66 % (41-73); NRBC ABSOLUTE 0.00 K/mm3 (0.00-0.02); NRBC Auto 0.0 /100 WBC (0.0-0.2); Platelet Count 229 K/mm3 (150-400); RDW Coefficient Variation 12.6 % (11.7-14.2); RDW Standard Deviation 45.1 fL (35.1-46.3)
[2025-08-20 14:19] LABS: Alanine Aminotransfer (ALT/SGP 35.0 U/L (12-78); Albumin, Blood 3.0 g/dL (3.4-5.0); Albumin/Globulin Ratio 0.9 (0.8-1.8); Anion Gap 9.0 mmol/L (3-11); Aspartate Aminotrans (AST/SGOT 63.0 U/L (12-37); Bilirubin, Total 0.4 mg/dL (0.1-1.0); Blood Urea Nitrogen 11.0 mg/dL (8-24); CO2, Blood 26.0 mmol/L (21-32); Calcium, Blood 9.1 mg/dL (8.5-10.1); Chloride, Blood 106.0 mmol/L (98-108); Creatinine, Blood 0.63 mg/dL (0.40-1.00); Globulin, Blood 3.5 g/dL (2.2-4.0); Glucose, Blood 182.0 mg/dL (70-99); Potassium, Blood 3.7 mmol/L (3.5-5.5); Sodium, Blood 137.0 mmol/L (136-145); Total Protein, Blood 6.5 g/dL (6.4-8.2)
[2025-08-20 15:21] LABS: Source, Urine Straight Cath
[2025-08-20 15:27] LABS: Bilirubin, Urine Neg (Neg); Color, Urine Yellow (P-Yellow); Glucose Qualitative, Urine Neg (Neg); Ketones, Urine Neg (Neg); Leukocyte Esterase, Urine Neg (Neg); Protein, Urine Neg (Neg); Specific Gravity, Urine 1.010 (1.003-1.022); Urobilinogen, Urine NORM (Normal)
[2025-08-20 15:45] VITALS: BP 17/95
[2025-08-20] MEDS ORDERED: Prednisone20 MG PO (15:58)
[2025-08-20] MEDS ORDERED: Diflucan150 MG PO (15:58)
== END 2025-08-20 16:18 | disposition home or self-care (01) ==
LOC: ER 13:07
PROVIDERS: Emergency Medicine
DX: J44.1 Chronic obstructive pulmonary disease with (acute) exacerbation (principal); N76.0 Acute vaginitis; E11.9 Type 2 diabetes mellitus without complications; I10 Essential (primary) hypertension; E78.5 Hyperlipidemia, unspecified; G47.30 Sleep apnea, unspecified; F17.200 Nicotine dependence, unspecified, uncomplicated; Z99.81 Dependence on supplemental oxygen; Z88.0 Allergy status to penicillin; Z88.2 Allergy status to sulfonamides; Z88.1 Allergy status to other antibiotic agents; Z88.8 Allergy status to other drugs, medicaments and biological substances; Z91.048 Other nonmedicinal substance allergy status; Z88.5 Allergy status to narcotic agent; Z79.84 Long term (current) use of oral hypoglycemic drugs; Z79.01 Long term (current) use of anticoagulants; Z79.899 Other long term (current) drug therapy
CPT/HCPCS: 71045; 80053; 81003; 83880; 84484; 85025; 93005; 93010; 99285-25; J7512

== ENCOUNTER → 2025-08-28 | Outpatient (CLI) | payer OTHER ==
[~2025-08-28] MED LIST changes: +Diflucan150 MG PO; +Prednisone20 MG PO
== END | disposition home or self-care (01) ==
LOC: LAB SHORT 16:15 → LAB 16:15
DX: R32 Unspecified urinary incontinence (principal)
CPT/HCPCS: 87077; 87086; 87186

== ENCOUNTER 2025-09-10 16:06 | Emergency (ER) | payer OTHER ==
[~2025-09-10] VITALS: Ht 160 cm; Wt 128.4 kg
[2025-09-10 17:04] LABS: BASOPHILS ABSOLUTE AUTO 0.09 K/mm3 (0.00-0.23); BASOPHILS PERCENT AUTO 1 % (0-2); EOSINOPHILS ABSOLUTE AUTO 0.24 K/mm3 (0.00-0.68); EOSINOPHILS PERCENT AUTO 2 % (0-6); Hematocrit 42.1 % (33.0-51.0); Hemoglobin 13.8 g/dL (11.5-16.0); IMMATURE GRAN ABSOLUTE AUTO 0.18 K/mm3 (0.00-0.10); IMMATURE GRAN PERCENT AUTO 2 % (0-1); LYMPHOCYTES ABSOLUTE AUTO 3.22 K/mm3 (0.84-5.20); LYMPHOCYTES PERCENT AUTO 33 % (21-46); MONOCYTES ABSOLUTE AUTO 0.71 K/mm3 (0.16-1.47); MONOCYTES PERCENT AUTO 7 % (4-13); Mean Corpuscular HGB Conc 32.8 g/dL (31.5-36.5); Mean Corpuscular Volume 98 fL (80-100); NEUTROPHILS ABSOLUTE AUTO 5.39 K/mm3 (1.96-9.15); NEUTROPHILS PERCENT AUTO 55 % (41-73); NRBC ABSOLUTE 0.00 K/mm3 (0.00-0.02); NRBC Auto 0.0 /100 WBC (0.0-0.2); Platelet Count 247 K/mm3 (150-400); RDW Coefficient Variation 13.8 % (11.7-14.2); RDW Standard Deviation 48.9 fL (35.1-46.3)
[2025-09-10 17:30] LABS: Magnesium, Blood 2.1 mg/dL (1.6-2.4)
[2025-09-10 17:31] LABS: Alanine Aminotransfer (ALT/SGP 28.0 U/L (12-78); Albumin, Blood 3.0 g/dL (3.4-5.0); Albumin/Globulin Ratio 0.8 (0.8-1.8); Anion Gap 10.0 mmol/L (3-11); Aspartate Aminotrans (AST/SGOT 59.0 U/L (12-37); Bilirubin, Total 0.2 mg/dL (0.1-1.0); Blood Urea Nitrogen 10.0 mg/dL (8-24); CO2, Blood 25.0 mmol/L (21-32); Calcium, Blood 9.2 mg/dL (8.5-10.1); Chloride, Blood 106.0 mmol/L (98-108); Creatinine, Blood 0.65 mg/dL (0.40-1.00); Globulin, Blood 3.6 g/dL (2.2-4.0); Glucose, Blood 260.0 mg/dL (70-99); Potassium, Blood 4.0 mmol/L (3.5-5.5); Sodium, Blood 137.0 mmol/L (136-145); Total Protein, Blood 6.6 g/dL (6.4-8.2)
[2025-09-10] MEDS ORDERED: FURO20 PO (18:05)
[2025-09-10 18:22] VITALS: BP 143/64
[2025-09-13] MEDS ORDERED: FURO40 PO (20:41)
[2025-09-13] MEDS ORDERED: Diflucan150 MG PO (20:44)
== END 2025-09-10 18:28 | disposition home or self-care (01) ==
LOC: ER 16:06
PROVIDERS: Emergency Medicine
DX: R60.0 Localized edema (principal); I11.0 Hypertensive heart disease with heart failure; I50.9 Heart failure, unspecified; J44.9 Chronic obstructive pulmonary disease, unspecified; E11.9 Type 2 diabetes mellitus without complications; E78.5 Hyperlipidemia, unspecified; G47.30 Sleep apnea, unspecified; F17.200 Nicotine dependence, unspecified, uncomplicated; Z86.711 Personal history of pulmonary embolism; Z99.81 Dependence on supplemental oxygen; Z88.0 Allergy status to penicillin; Z88.2 Allergy status to sulfonamides; Z88.1 Allergy status to other antibiotic agents; Z88.8 Allergy status to other drugs, medicaments and biological substances; Z91.048 Other nonmedicinal substance allergy status; Z79.84 Long term (current) use of oral hypoglycemic drugs; Z79.01 Long term (current) use of anticoagulants; Z79.899 Other long term (current) drug therapy
CPT/HCPCS: 71045; 80053; 83735; 83880; 85025; 93005; 93010; 96374; 99285-25; J1938

== ENCOUNTER 2025-09-15 09:58 | Emergency (ER) | payer OTHER ==
[~2025-09-15] VITALS: Ht 160 cm; Wt 127.9 kg
[~2025-09-15 09:58] MED LIST changes: +FURO20 PO; -Nicoderm Cq1 EAC1 TOP; -PRAMIPEXOLE DI0.5 M1 PO; +PRAMIPEXOLE DIHY1 MG PO; +PREG150 PO; -PREG75 PO
[2025-09-15 11:22] LABS: CORONAVIRUS COVID-19 AG Negative (NEGATIVE)
[2025-09-15 12:05] LABS: Source, Urine Voided
[2025-09-15 12:12] LABS: Bilirubin, Urine Neg (Neg); Color, Urine Yellow (P-Yellow); Glucose Qualitative, Urine Neg (Neg); Ketones, Urine Neg (Neg); Leukocyte Esterase, Urine Neg (Neg); Protein, Urine Neg (Neg); Specific Gravity, Urine 1.025 (1.003-1.022); Urobilinogen, Urine NORM (Normal)
[2025-09-15 12:18] LABS: BASOPHILS ABSOLUTE AUTO 0.10 K/mm3 (0.00-0.23); BASOPHILS PERCENT AUTO 1 % (0-2); EOSINOPHILS ABSOLUTE AUTO 0.20 K/mm3 (0.00-0.68); EOSINOPHILS PERCENT AUTO 2 % (0-6); Hematocrit 43.6 % (33.0-51.0); Hemoglobin 14.4 g/dL (11.5-16.0); IMMATURE GRAN ABSOLUTE AUTO 0.19 K/mm3 (0.00-0.10); IMMATURE GRAN PERCENT AUTO 2 % (0-1); LYMPHOCYTES ABSOLUTE AUTO 3.54 K/mm3 (0.84-5.20); LYMPHOCYTES PERCENT AUTO 36 % (21-46); MONOCYTES ABSOLUTE AUTO 0.79 K/mm3 (0.16-1.47); MONOCYTES PERCENT AUTO 8 % (4-13); Mean Corpuscular HGB Conc 33.0 g/dL (31.5-36.5); Mean Corpuscular Volume 97 fL (80-100); NEUTROPHILS ABSOLUTE AUTO 4.95 K/mm3 (1.96-9.15); NEUTROPHILS PERCENT AUTO 51 % (41-73); NRBC ABSOLUTE 0.00 K/mm3 (0.00-0.02); NRBC Auto 0.0 /100 WBC (0.0-0.2); Platelet Count 282 K/mm3 (150-400); RDW Coefficient Variation 14.0 % (11.7-14.2); RDW Standard Deviation 49.7 fL (35.1-46.3)
[2025-09-15 12:28] LABS: Red Blood Cells, Urine 0-2 /hpf (0-2)
[2025-09-15 12:45] LABS: Alanine Aminotransfer (ALT/SGP 32.0 U/L (12-78); Albumin, Blood 3.1 g/dL (3.4-5.0); Albumin/Globulin Ratio 0.8 (0.8-1.8); Anion Gap 10.0 mmol/L (3-11); Aspartate Aminotrans (AST/SGOT 63.0 U/L (12-37); Bilirubin, Total 0.2 mg/dL (0.1-1.0); Blood Urea Nitrogen 19.0 mg/dL (8-24); CO2, Blood 28.0 mmol/L (21-32); Calcium, Blood 9.9 mg/dL (8.5-10.1); Chloride, Blood 101.0 mmol/L (98-108); Creatinine, Blood 0.89 mg/dL (0.40-1.00); Globulin, Blood 3.9 g/dL (2.2-4.0); Glucose, Blood 234.0 mg/dL (70-99); Potassium, Blood 3.8 mmol/L (3.5-5.5); Sodium, Blood 135.0 mmol/L (136-145); Total Protein, Blood 7.0 g/dL (6.4-8.2)
[2025-09-15 16:01] VITALS: BP 131/65
[2025-09-15] MEDS ORDERED: Ipratropium/Albuterol SulF 2.5-0.5MG/3 ML Amp INH ONE (16:05)
[2025-09-24] MEDS ORDERED: CLOT10 MT (10:33)
[2025-09-24] MEDS ORDERED: FORMOTEROL20 MCG/2 M INH (10:34)
[2025-09-24] MEDS ORDERED: GLYCOPYRROL1 MG/5 M7 INH (10:37)
== END 2025-09-15 16:30 | disposition home or self-care (01) ==
LOC: ER 09:58
PROVIDERS: Emergency Medicine
DX: R53.1 Weakness (principal); I10 Essential (primary) hypertension; J44.9 Chronic obstructive pulmonary disease, unspecified; E11.9 Type 2 diabetes mellitus without complications; E78.5 Hyperlipidemia, unspecified; F17.210 Nicotine dependence, cigarettes, uncomplicated; Z88.2 Allergy status to sulfonamides; Z88.8 Allergy status to other drugs, medicaments and biological substances; Z79.899 Other long term (current) drug therapy; G47.30 Sleep apnea, unspecified
CPT/HCPCS: 80053; 81001; 83880; 84484; 85025; 87077; 87086; 87186; 87428-QW; 93005; 93010; 99284-25

== ENCOUNTER 2025-09-22 00:06 | Emergency (ER) | payer OTHER ==
[~2025-09-22] VITALS: Ht 160 cm; Wt 129.7 kg
[2025-09-22] MEDS ORDERED: Ipratropium/Albuterol SulF 2.5-0.5MG/3 ML Amp INH ONE (00:20)
[2025-09-22 00:26] LABS: BASOPHILS ABSOLUTE AUTO 0.09 K/mm3 (0.00-0.23); BASOPHILS PERCENT AUTO 1 % (0-2); EOSINOPHILS ABSOLUTE AUTO 0.19 K/mm3 (0.00-0.68); EOSINOPHILS PERCENT AUTO 2 % (0-6); Hematocrit 42.0 % (33.0-51.0); Hemoglobin 13.6 g/dL (11.5-16.0); IMMATURE GRAN ABSOLUTE AUTO 0.14 K/mm3 (0.00-0.10); IMMATURE GRAN PERCENT AUTO 2 % (0-1); LYMPHOCYTES ABSOLUTE AUTO 2.54 K/mm3 (0.84-5.20); LYMPHOCYTES PERCENT AUTO 31 % (21-46); MONOCYTES ABSOLUTE AUTO 0.63 K/mm3 (0.16-1.47); MONOCYTES PERCENT AUTO 8 % (4-13); Mean Corpuscular HGB Conc 32.4 g/dL (31.5-36.5); Mean Corpuscular Volume 98 fL (80-100); NEUTROPHILS ABSOLUTE AUTO 4.58 K/mm3 (1.96-9.15); NEUTROPHILS PERCENT AUTO 56 % (41-73); NRBC ABSOLUTE 0.00 K/mm3 (0.00-0.02); NRBC Auto 0.0 /100 WBC (0.0-0.2); Platelet Count 235 K/mm3 (150-400); RDW Coefficient Variation 14.2 % (11.7-14.2); RDW Standard Deviation 50.8 fL (35.1-46.3)
[2025-09-22 00:38] LABS: pH Blood Venous 7.34 (7.34-7.37)
[2025-09-22] MEDS ORDERED: Albuterol 2.5 MG/3 ML VIAL INH SCH (00:45)
[2025-09-22 01:22] LABS: Source, Urine Clean Catch
[2025-09-22 01:26] LABS: Bilirubin, Urine Neg (Neg); Glucose Qualitative, Urine Neg (Neg); Ketones, Urine Neg (Neg); Leukocyte Esterase, Urine Neg (Neg); Protein, Urine 1+ (Neg); Specific Gravity, Urine 1.010 (1.003-1.022); Urobilinogen, Urine NORM (Normal)
[2025-09-22 01:34] LABS: Color, Urine Pale Yellow (P-Yellow); Red Blood Cells, Urine 0-2 /hpf (0-2); White Blood Cells, Urine 0-2 /hpf (0-5)
[2025-09-22 01:37] LABS: Alanine Aminotransfer (ALT/SGP 29.0 U/L (12-78); Albumin, Blood 2.7 g/dL (3.4-5.0); Albumin/Globulin Ratio 0.7 (0.8-1.8); Anion Gap 11.0 mmol/L (3-11); Aspartate Aminotrans (AST/SGOT 55.0 U/L (12-37); Bilirubin, Total 0.2 mg/dL (0.1-1.0); Blood Urea Nitrogen 11.0 mg/dL (8-24); CO2, Blood 26.0 mmol/L (21-32); Calcium, Blood 8.6 mg/dL (8.5-10.1); Chloride, Blood 109.0 mmol/L (98-108); Creatinine, Blood 0.83 mg/dL (0.40-1.00); Globulin, Blood 3.7 g/dL (2.2-4.0); Glucose, Blood 255.0 mg/dL (70-99); Potassium, Blood 3.8 mmol/L (3.5-5.5); Sodium, Blood 142.0 mmol/L (136-145); Thyroid Stimulating Hormone 3.99 uIU/mL (0.360-4.800); Total Protein, Blood 6.4 g/dL (6.4-8.2)
[2025-09-22 06:00] VITALS: BP 140/75
[2025-09-24] MEDS ORDERED: CLOT10 MT (10:33)
[2025-09-24] MEDS ORDERED: FORMOTEROL20 MCG/2 M INH (10:34)
[2025-09-24] MEDS ORDERED: GLYCOPYRROL1 MG/5 M7 INH (10:37)
== END 2025-09-22 07:45 | disposition home or self-care (01) ==
LOC: ER 00:06
PROVIDERS: Student in an Organized Health Care Education/Training Program
DX: R00.0 Tachycardia, unspecified (principal); J96.10 Chronic respiratory failure, unspecified whether with hypoxia or hypercapnia; I11.0 Hypertensive heart disease with heart failure; E11.9 Type 2 diabetes mellitus without complications; I50.9 Heart failure, unspecified; F17.200 Nicotine dependence, unspecified, uncomplicated; Z79.52 Long term (current) use of systemic steroids; Z79.84 Long term (current) use of oral hypoglycemic drugs; Z79.899 Other long term (current) drug therapy; Z88.0 Allergy status to penicillin; Z88.2 Allergy status to sulfonamides; Z88.5 Allergy status to narcotic agent; Z91.048 Other nonmedicinal substance allergy status; Z79.01 Long term (current) use of anticoagulants
CPT/HCPCS: 71045; 80053; 81001; 82803; 83880; 84443; 84484; 85025; 93005; 93010; 99285-25